=== PATIENT | male | born 1945 | race Caucasian/White ===

== ENCOUNTER 2020-05-22 00:08 | Outpatient (CLI) | payer MEDICARE, SELFPAY ==
[2020-05-22 19:45] LABS: SARS-CoV-2 RNA PCR Negative
== END 2020-05-22 00:09 | disposition home or self-care (01) ==
LOC: ANHCOVIDDT 00:08
PROVIDERS: PCP Internal Medicine; Visit Provider Internal Medicine Gastroenterology
DX: Z01.812 Encounter for preprocedural laboratory examination (principal); Z11.59 Encounter for screening for other viral diseases
CPT/HCPCS: 87635; C9803; U0003

== ENCOUNTER 2020-05-24 02:59 | Day surgery (SDC) | payer MEDICARE, SELFPAY ==
[2020-05-17 11:16] VITALS: BMI 25.1
[2020-05-24 08:17] VITALS: BP 140/79; PULSE 56; RESP 16; TEMP 36.2; O2SAT 98; BMI 24.7
--- NOTE | 2020-05-24 08:19 | P.PNAN_ITS ---
Anes - Initial Pre Proc Eval Procedure: Operation Date: 05/24/20 08:30 Proposed Procedures p Colonoscopy - Brendan Thompson MD Date/Time: 05/24/20 08:19 Surgeon: Brendan Thompson MD Pre Op Diagnosis: Abnormal Stool/ Hx Colon Polyps Patient Data Age: 74 Gender: M Height: 1.73 m Weight: 73.9 kg Last Vital Signs Temp 36.2 C L 05/24/20 08:17 Pulse 56 L 05/24/20 08:17 Resp 16 05/24/20 08:17 BP 140/79 05/24/20 08:17 Pulse Ox 98 05/24/20 08:17 Allergies Allergy/AdvReac Type Severity Reaction Status Date / Time No Known Allergies Allergy Verified 05/24/20 08:16 Home Medications Medication Instructions Recorded Confirmed Type losartan 100 mg tablet 100 mg PO DAILY 03/29/20 05/17/20 History lovastatin 20 mg tablet 20 mg PO DAILY 03/29/20 05/17/20 History metoprolol tartrate 25 mg tablet 25 mg PO BID 03/29/20 05/17/20 History pantoprazole 40 mg tablet,delayed 40 mg PO QAM 03/29/20 05/17/20 History release potassium chloride 20 mEq 20 meq PO DAILY 03/29/20 05/17/20 History tablet,extended release albuterol sulfate 1 inh INHALATION QID PRN 05/17/20 05/17/20 History amlodipine 5 mg PO DAILY 05/17/20 05/17/20 History Patient hx anesthesia problems: none Family hx anesthesia problems: none [facility] Past Medical History Medical History (Updated 05/24/20 @ 08:21 by Hayden Saleh MD) COPD (chronic obstructive pulmonary disease) Esophageal stricture High blood pressure High cholesterol Positive occult stool blood test Tobacco abuse Social History Social History (Updated 03/29/20 @ 09:22 by Adalgisa Palomo RN) Smoking status: Current every day smoker Tobacco type: cigarettes Alcohol intake: current Anes - Eval Final PreProcedure Day of Procedure 05/24/20 08:19 Patient weight: normal Heart: regular rate and rhythm Lungs: clear to auscultation and normal air movement Airway: Mallampati scale class II Neurological: alert and oriented Last oral intake: >/= 8 hours ASA classification: III Emergent: no Anesthetic plan: proceed Anesthesia type and monitoring: general GIVS Informed Consent: The patient's anesthetic plan and its attendant risks and benefits were discussed with the patient/family/POA. Questions were solicited and answers provided to the satisfaction of the patient/family/POA.
--- NOTE | 2020-05-24 08:29 | WPDGICN ---
Assessment and Plan Assessment and plan (1) Positive occult stool blood test: Code(s): R19.5 - Other fecal abnormalities Status: Acute Assessment and Plan: Occult blood in stool noted on screening exam for this reason colonoscopy will be performed at this time. High-fiber diet advised. Which may help with hemorrhoids. (2) History of colon polyps: Code(s): Z86.010 - Personal history of colonic polyps Status: Acute Assessment and Plan: Patient has a history of colon polyps identified 2014 by previous colonoscopy. This will be evaluated by repeat colonoscopy at this time. (3) Acid reflux: Code(s): K21.9 - Gastro-esophageal reflux disease without esophagitis Status: Acute Assessment and Plan: Patient known to have acid reflux. History of esophageal stricture . patient is advised to notify us if swallowing difficulties persist or recur. At that time follow-up might be requested continue anti-reflux m GI Consult Note Consult date/time: 05/24/20 08:29 HPI: Bryant Florian is a 74 year old male seen in evaluation at the request of Dr Adams Storm. Patient recently found to have Hemoccult-positive stools. He is referred for colonoscopy. Patient gives a history of having had a colonoscopy performed in [place] in 2014. At that time he was found to have colon polyps. Patient currently denies any abdominal pain he states his bowel habits are normal and regular. States he is known to have hemorrhoids that occasionally cause discomfort. However no discomfort recently. He denies any obvious blood in his stools. Family history is noncontributory. Review of Systems Review of Systems: All systems reviewed & are unremarkable except as noted in HPI and below PMFSH Past Medical History Medical History COPD (chronic obstructive pulmonary disease) Esophageal stricture High blood pressure High cholesterol Positive occult stool blood test Tobacco abuse Social History Social History (Updated 03/29/20 @ 09:22 by Adalgisa Palomo RN) Smoking status: Current every day smoker Tobacco type: cigarettes Alcohol intake: current Meds Home Medications and Allergies Home Medications Medication Instructions Recorded Confirmed Type losartan 100 mg tablet 100 mg PO DAILY 03/29/20 05/17/20 History lovastatin 20 mg tablet 20 mg PO DAILY 03/29/20 05/17/20 History metoprolol tartrate 25 mg tablet 25 mg PO BID 03/29/20 05/17/20 History pantoprazole 40 mg tablet,delayed 40 mg PO QAM 03/29/20 05/17/20 History release potassium chloride 20 mEq 20 meq PO DAILY 03/29/20 05/17/20 History tablet,extended release albuterol sulfate 1 inh INHALATION QID PRN 05/17/20 05/17/20 History amlodipine 5 mg PO DAILY 05/17/20 05/17/20 History Allergies Allergy/AdvReac Type Severity Reaction Status Date / Time No Known Allergies Allergy Verified 05/24/20 08:16 Vital Signs Vital Signs - 24 hr 05/24/20 08:17 Temperature 97.2 F L Pulse Rate 56 L Respiratory Rate 16 Blood Pressure 140/79 Pulse Oximetry 98 Exam Narrative: Exam Narrative: Physical exam reveals patient to be alert. Vital signs stable. HEENT exam unremarkable. Lungs are clear to auscultation and percussion. Heart is without murmur or extra sounds. Abdominal exam bowel sounds are present soft nontender with no hepatosplenomegaly. Digital external rectal exam is normal.
[2020-05-24] MEDS: LACTATED RINGERS 1,000 ML 150 ML IV CONT (08:33)
[2020-05-24 09:26] VITALS: BP 89/56; PULSE 64; RESP 16; O2SAT 98
[2020-05-24 09:36] VITALS: BP 116/75; PULSE 71; RESP 18; O2SAT 99
[2020-05-24 09:46] VITALS: BP 132/81; PULSE 60; RESP 19; O2SAT 99
== END 2020-05-24 09:49 | disposition home or self-care (01) ==
PROVIDERS: PCP Internal Medicine; Visit Provider Internal Medicine Gastroenterology
PROC: 0DJD8ZZ Inspection of Lower Intestinal Tract, Via Natural or Artificial Opening Endoscopic (ICD-10-PCS; CPT 45378; principal; 2020-05-24 08:30)
DX: R19.5 Other fecal abnormalities (principal); K64.8 Other hemorrhoids; K57.30 Diverticulosis of large intestine without perforation or abscess without bleeding; Z86.010 Personal history of colon polyps; K21.9 Gastro-esophageal reflux disease without esophagitis; I10 Essential (primary) hypertension; E78.00 Pure hypercholesterolemia, unspecified; J44.9 Chronic obstructive pulmonary disease, unspecified; F17.210 Nicotine dependence, cigarettes, uncomplicated
CPT/HCPCS: 45378; J2704; J7120

== ENCOUNTER 2020-12-10 03:18 | Outpatient (CLI) | payer MEDICARE, SELFPAY ==
[2020-12-10 16:31] LABS: SARS-CoV-2 RNA PCR Negative
== END 2020-12-10 03:19 | disposition home or self-care (01) ==
LOC: ANHCOVIDDT 03:18
PROVIDERS: PCP Internal Medicine; Visit Provider Internal Medicine Gastroenterology
DX: Z01.812 Encounter for preprocedural laboratory examination (principal); Z20.822 Contact with and (suspected) exposure to COVID-19
CPT/HCPCS: C9803; U0003; U0005

== ENCOUNTER 2020-12-13 01:40 | Day surgery (SDC) | payer MEDICARE, SELFPAY ==
[2020-12-06 12:13] VITALS: BMI 27.6
[2020-12-13 06:18] VITALS: BP 138/84; PULSE 73; RESP 20; TEMP 36.6; O2SAT 96
[2020-12-13] MEDS: LACTATED RINGERS 1,000 ML 150 ML IV CONT (06:27)
--- NOTE | 2020-12-13 07:11 | WPDANESEPPF ---
Anes - Initial Pre Proc Eval Procedure: Operation Date: 12/13/20 07:30 Proposed Procedures p Esophagogastroduodenoscopy - Brendan Thompson MD Date/Time: 12/13/20 07:11 Surgeon: Brendan Thompson MD Pre Op Diagnosis: Dysphagia Patient Data Age: 75 Gender: M Height: 5 ft 9 in Weight: 85 kg Last Vital Signs Temp 97.8 F 12/13/20 06:18 Pulse 73 12/13/20 06:18 Resp 20 12/13/20 06:18 BP 138/84 12/13/20 06:18 Pulse Ox 96 12/13/20 06:18 Allergies Allergy/AdvReac Type Severity Reaction Status Date / Time No Known Allergies Allergy Verified 12/13/20 06:16 Home Medications Medication Instructions Recorded Confirmed Type losartan 100 mg tablet 100 mg PO DAILY 03/29/20 12/06/20 History lovastatin 20 mg tablet 20 mg PO DAILY 03/29/20 12/06/20 History metoprolol tartrate 25 mg tablet 25 mg PO BID 03/29/20 12/06/20 History pantoprazole 40 mg tablet,delayed 40 mg PO BID 03/29/20 12/06/20 History release potassium chloride 20 mEq 20 meq PO DAILY 03/29/20 12/06/20 History tablet,extended release albuterol sulfate 1 inh INHALATION QID PRN 05/17/20 12/06/20 History amlodipine 5 mg PO DAILY 05/17/20 12/06/20 History aspirin 81 mg PO DAILY 12/06/20 12/06/20 History cholecalciferol (vitamin D3) 25 mcg PO DAILY 12/06/20 12/06/20 History cyanocobalamin (vitamin B-12) 1,000 mcg PO DAILY 12/06/20 12/06/20 History [Vitamin B-12] Patient hx anesthesia problems: none Family hx anesthesia problems: none PMFSH Past Medical History Medical History COPD (chronic obstructive pulmonary disease) Esophageal stricture High blood pressure High cholesterol Positive occult stool blood test Tobacco abuse Social History Social History (Updated 12/05/20 @ 14:07 by Rebekah Santillan MA) Smoking packs per day: 1.5 Smoking cigarettes per day: 30.0 Years smoked: 60 Smoking pack-years: 90.00 Smoking status: Former smoker Tobacco type: cigarettes Alcohol intake: current Drinks per week: 21 Alcohol use details: wine Living arrangements: with family Gender identity (if verbalized by the patient): Male Spiritual care concerns: No Anes - Eval Final PreProcedure Day of Procedure 12/13/20 07:11 Patient weight: overweight Heart: regular rate and rhythm Lungs: clear to auscultation Airway: Mallampati scale class II Neurological: alert and oriented Last oral intake: >/= 8 hours ASA classification: III Emergent: no Anesthetic plan: proceed Anesthesia type and monitoring: general GIVS and standard monitoring Informed Consent: The patient's anesthetic plan and its attendant risks and benefits were discussed with the patient/family/POA. Questions were solicited and answers provided to the satisfaction of the patient/family/POA.
[2020-12-13] MEDS: BENZOCAINE (*SP) 60 ML SPRAY CAN (HURRICAINE) 1 SPRAY MUCOUS MEM (07:40)
--- NOTE | 2020-12-13 07:40 | WPDHPUPDATE1 ---
History and Physical Update Update Date/Time: 12/13/20 07:40 History and Physical has been reviewed, including an updated exam of the patient. There are NO changes in the patient's condition. Risks, benefits, and alternatives have been discussed and questions answered. Patient agrees to proceed with procedure.
--- NOTE | 2020-12-13 07:48 | WPDGICN ---
Assessment and Plan Assessment and plan (1) Dysphagia: Code(s): R13.10 - Dysphagia, unspecified Status: Acute Assessment and Plan: Patient with recurrent dysphagia. He has a known history of esophageal stricture. Plan is for EGD today to assess more thoroughly. Because of his history of acid reflux pantoprazole 40 mg p.o. daily will be continued. Anti-reflux measures encouraged further recommendations will be given after endoscopy. (2) Esophageal stricture: Code(s): K22.2 - Esophageal obstruction Status: Acute (3) History of colon polyps: Code(s): Z86.010 - Personal history of colonic polyps Status: Acute Assessment and Plan: Anticipate follow-up colonoscopy at 5 year intervals. GI Consult Note Consult date/time: 12/13/20 07:48 HPI: Bryant Florian is a 75 year old male Seen in evaluation request Dr. Adams Storm. Patient has had increasing difficulty swallowing. Complains of significant phlegm production after eating. Currently denies any heartburn. He has had no weight loss. He does have past medical history of esophageal web dilated by endoscopy in the past. Was recently restarted on pantoprazole 40 mg p.o. daily. Review of Systems Review of Systems: All systems reviewed & are unremarkable except as noted in HPI and below PMFSH Past Medical History Medical History (Updated 12/13/20 @ 07:50 by Brendan Thompson MD) COPD (chronic obstructive pulmonary disease) Esophageal stricture High blood pressure High cholesterol Positive occult stool blood test Tobacco abuse Social History Social History (Updated 12/05/20 @ 14:07 by Rebekah Santillan MA) Smoking packs per day: 1.5 Smoking cigarettes per day: 30.0 Years smoked: 60 Smoking pack-years: 90.00 Smoking status: Former smoker Tobacco type: cigarettes Alcohol intake: current Drinks per week: 21 Alcohol use details: wine Living arrangements: with family Gender identity (if verbalized by the patient): Male Spiritual care concerns: No Meds Home Medications and Allergies Home Medications Medication Instructions Recorded Confirmed Type losartan 100 mg tablet 100 mg PO DAILY 03/29/20 12/06/20 History lovastatin 20 mg tablet 20 mg PO DAILY 03/29/20 12/06/20 History metoprolol tartrate 25 mg tablet 25 mg PO BID 03/29/20 12/06/20 History pantoprazole 40 mg tablet,delayed 40 mg PO BID 03/29/20 12/06/20 History release potassium chloride 20 mEq 20 meq PO DAILY 03/29/20 12/06/20 History tablet,extended release albuterol sulfate 1 inh INHALATION QID PRN 05/17/20 12/06/20 History amlodipine 5 mg PO DAILY 05/17/20 12/06/20 History aspirin 81 mg PO DAILY 12/06/20 12/06/20 History cholecalciferol (vitamin D3) 25 mcg PO DAILY 12/06/20 12/06/20 History cyanocobalamin (vitamin B-12) 1,000 mcg PO DAILY 12/06/20 12/06/20 History [Vitamin B-12] Allergies Allergy/AdvReac Type Severity Reaction Status Date / Time No Known Allergies Allergy Verified 12/13/20 06:16 Vital Signs Vital Signs - 24 hr 12/13/20 06:18 Temperature 97.8 F Pulse Rate 73 Respiratory Rate 20 Blood Pressure 138/84 Pulse Oximetry 96 Exam Narrative: Exam Narrative: Physical exam reveals patient to be alert. Vital signs stable. HEENT exam unremarkable. Patient is anicteric. Lungs are clear. Heart without murmur. Abdomen bowel sounds present soft nontender with no organomegaly. Digital external rectal exam deferred today.
[2020-12-13 07:53] VITALS: BP 127/82; PULSE 65; RESP 17; O2SAT 97
[2020-12-13 08:03] VITALS: BP 125/81; PULSE 70; RESP 19; O2SAT 95
[2020-12-13 08:10] VITALS: BP 144/88; PULSE 66; RESP 17; O2SAT 96
== END 2020-12-13 08:26 | disposition home or self-care (01) ==
PROVIDERS: PCP Internal Medicine; Visit Provider Internal Medicine Gastroenterology
PROC: 0DJ08ZZ Inspection of Upper Intestinal Tract, Via Natural or Artificial Opening Endoscopic (ICD-10-PCS; CPT 43235; principal; 2020-12-13 07:30)
DX: Q39.4 Esophageal web (principal); J44.9 Chronic obstructive pulmonary disease, unspecified; I10 Essential (primary) hypertension; E78.00 Pure hypercholesterolemia, unspecified; Z87.891 Personal history of nicotine dependence
CPT/HCPCS: 43450; J2704; J7120

== ENCOUNTER 2021-01-17 09:41 | Outpatient (CLI) | payer MEDICARE, SELFPAY ==
--- NOTE | ~2021-01-17 | XR_ITS ---
EXAMINATION: XR barium swallow modified DATE: 01/17/2021 09:57 INDICATION: Dysphagia. TECHNIQUE: The patient was given barium-containing material of multiple consistencies to swallow by edwin gallagher speech pathologist while I performed fluoroscopy. Dose-area product was 1.066 Gy-cm2. 2.2 minutes fluoroscopy time FINDINGS: Oral Stage: Normal Pharyngeal Phase: Normal Cervical/Esophageal Stage: Normal IMPRESSION: Modified esophagram findings as above. Please refer [facility] the [facility]. Reviewed, dictated and finalized at [facility]. Reviewed, dictated and finalized at [facility]. CHING OPERATOR IMPRESSION: Modified esophagram findings as above. Please refer to the speech t herapy report for specific recommendations.
--- NOTE | 2021-01-17 10:33 | STOPEVAL ---
MODIFIED BARIUM SWALLOW EVALUATION: Thank you for referring Bryant Florian to [facility].? Attending Provider: Brendan Thompson MD *ST Outpatient Evaluation/MBS Therapy Assessment Status Assessment Status Assessment Status Evaluation Outpatient Past Medical History Neurological History Hx Neurological Disorders No Significant History Cardiovascular History Hx Hypercholesterolemia Yes Hx Hypertension Yes Respiratory History Hx Chronic Obstructive Pulmonary Disease Yes: inhaler (COPD) Hx Other Respiratory Disorders Yes: collapsed lung age 21 yrs old Gastrointestinal History Hx Esophageal Disorders Yes: 2011 esophageal stricture with dilatation & again 2 weeks ago Hx Gastroesophageal Reflux Disease Yes Hx Polyps Yes: colon Genitourinary History Hx Genitourinary Disorders No Significant History Musculoskeletal History Hx Musculoskeletal Disorders No Significant History Hematological History Hx Hematological Disorders No Significant History Endocrine History Hx Endocrine Disorders No Significant History HEENT History Hx HEENT Disorders No Significant History Integumentary History Hx Skin Disorders No Significant History Reproductive History Hx Reproductive Disorders No Significant History Psychosocial History Hx Psychiatric Disorders No Significant History Pain History History of Any Previous or Ongoing No Significant History Instance of Pain Anesthesia History Hx Anesthesia Reactions No Significant History Prior Level of Function Prior Swallow Level Prior Intake Method Oral Prior Diet Regular (Level 7 Diet) Prior Liquid Consistency Thin (Level 0 Diet) Pain Assessment Timing of Pain Assessment Timing of Pain Assessment Assessment Self Report Self Report Pain Level 0 Pain Score Pain Score 0: Self Report Modified Barium Swallow Evaluation Recent Swallowing History Reports Dysphagia No: c/o coughing up phlegm in the am History of Dysphagia No Other Related History 2011 esophageal stricture with dilatation & again 2 weeks ago Other Factors Impacting Dysphagia None Reported Difficult Consistencies Saliva Intake Method Prior to Swallow Oral Evaluation Diet Prior to Swallow Evaluation Regular, Level 7 Liquid Consistency Prior to Swallow Thin (0) Evaluation Consistency Solid Consistency Other Amount cracker Method of Presentation Spoon Oral Preparatory Symptoms Within Functional Limits Oral Phase Symptoms Within Functional Limits Pharyngeal Phase Symptoms
== END 2021-01-17 09:42 | disposition home or self-care (01) ==
PROVIDERS: PCP Internal Medicine; Visit Provider Internal Medicine Gastroenterology
DX: R13.10 Dysphagia, unspecified (principal)
CPT/HCPCS: 92611

== ENCOUNTER 2021-02-25 07:55 | Outpatient (CLI) | payer MEDICARE, SELFPAY ==
--- NOTE | ~2021-02-25 | CT_ITS ---
EXAMINATION: CT lung screening DATE: 02/25/2021 08:31 INDICATION: Z87.891 - Personal history of nicotine dependence TECHNIQUE: Computed tomography (CT) of the chest was performed without intravenous contrast. Addition al 3D reconstructions utilizing coronal maximum intensity projection (MIP) were performed. Automated exposure control and iterative reconstruction technique were employed. The dose-length product was 14 2.05 mGy-cm. COMPARISON: None FINDINGS: Moderate paraseptal predominant emphysema throughout both lungs. There is a region of atelectasis/sca rring at the anteromedial right middle lobe with surrounding local architectural distortion indicatin g associated volume loss. Additional mild discoid atelectasis/scarring at the left apex. There are co uple calcified nodules in the bilateral lower lobes along with calcified left hilar lymph nodes and s everal punctate calcification at the dome of liver consistent with old granulomatous disease. Small b ilateral fat-containing Bochdalek hernias. Heart size is normal. Atherosclerotic coronary artery calc ifications. Mild aortic valve calcification. No pericardial or pleural effusion. Small sliding-type h iatal hernia. Thoracic aorta is normal in caliber with small amount of atherosclerotic calcification. Bilateral renal cysts, the largest measuring 3.5 cm in the right kidney. Moderate to severe thoracol umbar spondylosis with Schmorl's nodes along the superior endplates of T12 and L1. IMPRESSION: 1. Lung-RADS category 1: Negative. Continue annual screening with noncontrast low-dose chest CT in 12 months. 2. Moderate paraseptal emphysema. 3. Small sliding-type hiatal hernia. Reviewed, dictated and finalized at [facility]. IMPRESSION: 1. Lung-RADS category 1: Negative. Continue annual screening with noncontrast l ow-dose chest CT in 12 months. 2. Moderate paraseptal emphysema. 3. Small sliding-type hiatal hernia.
== END 2021-02-25 07:56 | disposition home or self-care (01) ==
LOC: ANHIMG 08:01
PROVIDERS: PCP Internal Medicine; Visit Provider Internal Medicine Pulmonary Disease
DX: Z12.2 Encounter for screening for malignant neoplasm of respiratory organs (principal); Z87.891 Personal history of nicotine dependence; J43.9 Emphysema, unspecified; K44.9 Diaphragmatic hernia without obstruction or gangrene
CPT/HCPCS: 71271

== ENCOUNTER 2021-02-28 08:43 | Outpatient (CLI) | payer MEDICARE, SELFPAY ==
[2021-02-28 09:30] VITALS: PULSE 98; O2SAT 95
[2021-02-28 09:35] VITALS: PULSE 106; O2SAT 93
[2021-02-28 09:45] VITALS: PULSE 92; O2SAT 95
--- NOTE | 2021-02-28 11:46 | HOMEO2EVAL ---
Home Oxygen Evaluation RC: Home Oxygen (O2) Evaluation Start: 02/28/21 11:44 Freq: Status: Active Protocol: RPE Activity Type Activity Date Activity User E-Sign Co-Sign Detail Recorded Client Recorded Date Recorded By Document 02/28/21 09:30 DJO [email or web address] 02/28/21 11:46 DJO Document 02/28/21 09:35 [email or web address] [email or web address] 02/28/21 11:46 DJO Document 02/28/21 09:45 [email or web address] [email or web address] 02/28/21 11:46 DJO 02/28/21 02/28/21 02/28/21 09:30 09:35 09:45 Home O2 Evaluation Test Phase Resting Exercise Resting Oxygen Delivery Room Air Room Air Room Air Pulse Oximetry (90-100 %) 95 93 95 Pulse Rate (60-100 beats/min) 98 106 H 92 Ambulation Distance (feet) 1,200 Home Oxygen Evaluation Comments NO HOME O2 NEEDED Treatment Charges O2 Evaluation - Outpatient
--- NOTE | 2021-02-28 17:17 | P.PCNPFT_ITS ---
PFT Interpretation This is a pulmonary function test with pre and post-bronchodilator spirometry, plethysmography and diffusing capacity. The test was performed and results interpreted in accordance with the 2019 and 2005 ATS/ERS Task Force guidelines respectively using the Global Lung Function Initiative-2012 reference equations. Patient demonstrated good effort and c ooperation. Reproducibility criteria were met. The quality of the pre bronchodilator spirometry maneuver was Grade A and post bronchodilator spirometry maneuver was Grade A. Findings: Spirometry: There is decreased maximal expiratory airflow at all lung volumes with concave expiratory flow tracing. The contour of the inspiratory flow tracing is normal. The pre bronchodilator FVC is 3.65 L, 93% predicted. The pre bronchodilator FEV1 is 1.89 L, 64% predicted. The FEV1: FVC ratio is 52%. The post bronchodilator FVC is 4.06 L, representing 11% increase. The post bronchodilator FEV1 is 2.17 L, representing a 14% increase. Plethysmography: The total lung capacity is 8.17 L, 120% predicted. The functional residual capacity is 4.23 L, 116% predicted. The residual volume is 4.10 L, 166% predicted. Diffusing capacity: The absolute diffusion capacity was 13.4, 54% predicted. The diffusing capacity corrected for alveolar volume is 2.21, 57% predicted. Impression: There is a modeerate obstructive abnormality with significant improvement after inhaling a single dose of albuterol. The increase in residual volume is consistent with air trapping from an obstructive abnormality. The absolute diffusing capacity is moderately decreased and remains moderately decreased when corrected for alveolar volume. There are no prior studies for comparison PFT Procedure Performed PFT Procedure Performed Spirometry with Pre/Post Bronchodilator Plethysmography (Lung Vol) Diffusing Cap (DLCO)
== END 2021-02-28 08:44 | disposition home or self-care (01) ==
PROVIDERS: PCP Internal Medicine; Referring Provider Nurse Practitioner Family; Visit Provider Internal Medicine Pulmonary Disease
DX: J44.9 Chronic obstructive pulmonary disease, unspecified (principal); R06.00 Dyspnea, unspecified
CPT/HCPCS: 94060; 94618; 94726; 94729

== ENCOUNTER 2021-11-14 02:26 | Day surgery (SDC) | payer MEDICARE, SELFPAY ==
[2021-11-07 10:39] VITALS: BMI 25.8
[2021-11-14 11:23] VITALS: BP 138/87; PULSE 74; RESP 16; TEMP 36.4; O2SAT 98
[2021-11-14] MEDS: LACTATED RINGERS 1,000 ML 150 ML IV CONT (11:26)
--- NOTE | 2021-11-14 12:04 | WPDANESEPPF ---
Anes - Initial Pre Proc Eval Procedure: Operation Date: 11/14/21 13:30 Proposed Procedures p Esophagogastroduodenoscopy - Brendan Thompson MD Date/Time: 11/14/21 12:04 Surgeon: Brendan Thompson MD Pre Op Diagnosis: dysphagia Patient Data Age: 76 Gender: M Height: 1.73 m Weight: 72.5 kg Last Vital Signs Temp 36.4 C 11/14/21 11:23 Pulse 74 11/14/21 11:23 Resp 16 11/14/21 11:23 BP 138/87 11/14/21 11:23 Pulse Ox 98 11/14/21 11:23 Allergies Allergy/AdvReac Type Severity Reaction Status Date / Time No Known Allergies Allergy Verified 11/14/21 11:22 Home Medications Medication Instructions Recorded Confirmed Type losartan 100 mg tablet 100 mg PO DAILY 03/29/20 11/07/21 History pantoprazole 40 mg tablet,delayed 40 mg PO DAILY 03/29/20 11/07/21 History release potassium chloride 20 mEq 20 meq PO DAILY 03/29/20 11/07/21 History tablet,extended release albuterol sulfate 1 inh INHALATION QID PRN 05/17/20 11/07/21 History amlodipine 5 mg PO DAILY 05/17/20 11/07/21 History cholecalciferol (vitamin D3) 25 mcg PO DAILY 12/06/20 11/07/21 History cyanocobalamin (vitamin B-12) 1,000 mcg PO DAILY 12/06/20 11/07/21 History [Vitamin B-12] tiotropium bromide 2.5 2 inh INHALATION DAILY #4 g 09/25/21 11/07/21 Rx mcg/actuation mist for inhalation lovastatin 20 mg PO DAILY 11/07/21 11/07/21 History metoprolol succinate 25 mg PO BID 11/07/21 11/07/21 History Patient hx anesthesia problems: none Family hx anesthesia problems: none Results Review: All pre-operative results and documents have been reviewed as part of the pre-operative evaluation. [facility] [place] Past Medical History Medical History COPD (chronic obstructive pulmonary disease) Esophageal stricture High blood pressure High cholesterol Positive occult stool blood test Tobacco abuse Social History Social History Smoking packs per day: 1.5 Smoking cigarettes per day: 30.0 Years smoked: 62 Smoking pack-years: 93.00 Smoking status: Former smoker Tobacco type: cigarettes Smoking end date: 04/11/20 Alcohol intake: current Drinks per week: 14 Alcohol use details: WINE IN JES. Substance use: never Substance use type: does not use Living arrangements: with family Gender identity (if verbalized by the patient): Male Spiritual care concerns: No Anes - Eval Final PreProcedure Day of Procedure 11/14/21 12:04 Patient weight: normal Heart: regular rate and rhythm Lungs: clear to auscultation Airway: Mallampati scale class II Neurological: alert and oriented Last oral intake: >/= 8 hours ASA classification: III Emergent: no Anesthetic plan: proceed Anesthesia type and monitoring: general GIVS and standard monitoring Results Review: All pre-operative results and documents have been reviewed as part of the pre-operative evaluation. Informed Consent: The patient's anesthetic plan and its attendant risks and benefits were discussed with the patient/family/POA. Questions were solicited and answers provided to the satisfaction of the patient/family/POA.
--- NOTE | 2021-11-14 12:07 | WPDGICN ---
Assessment and Plan Assessment and plan (1) Dysphagia: Code(s): R13.10 - Dysphagia, unspecified Status: Acute Assessment and Plan: Patient with recurrent dysphagia. Known to have esophageal stricture. Plan is for follow-up EGD at this time. He continues to have heartburn despite taking pantoprazole 40mg p.o. daily. May need an alteration or adjustment of this dose. Further recommendations will be given after EGD. (2) Esophageal stricture: Code(s): K22.2 - Esophageal obstruction Status: Acute (3) Acid reflux: Code(s): K21.9 - Gastro-esophageal reflux disease without esophagitis Status: Acute (4) COPD (chronic obstructive pulmonary disease): Code(s): J44.9 - Chronic obstructive pulmonary disease, unspecified Status: Acute GI Consult Note Consult date/time: 11/14/21 12:07 HPI: Bryant Florian is a 76 year old male Complains of recurrent difficulty swallowing. Patient stop smoking cigarettes. He states that since that time has had significant phlegm production. He notices regurgitation per dominantly nocturnally. He will have substernal burning. He has difficulty with spicy foods. In November of 2020 had esophageal stricture requiring dilatation since that time he has been maintained on pantoprazole 40mg p.o. once daily. He did well initially however over the last several months has had increasing difficulty swallowing both solids and liquids. He feels substernal burning on swallowing spicy foods. He has heartburn at night with regurgitation. He also feels that foods will hang up in the low mid chest. Review of Systems Review of Systems: All systems reviewed & are unremarkable except as noted in HPI and below [facility] Past Medical History Medical History COPD (chronic obstructive pulmonary disease) Esophageal stricture High blood pressure High cholesterol Positive occult stool blood test Tobacco abuse Social History Social History Smoking packs per day: 1.5 Smoking cigarettes per day: 30.0 Years smoked: 62 Smoking pack-years: 93.00 Smoking status: Former smoker Tobacco type: cigarettes Smoking end date: 04/11/20 Alcohol intake: current Drinks per week: 14 Alcohol use details: WINE IN JES. Substance use: never Substance use type: does not use Living arrangements: with family Gender identity (if verbalized by the patient): Male Spiritual care concerns: No Meds Home Medications and Allergies Home Medications Medication Instructions Recorded Confirmed Type losartan 100 mg tablet 100 mg PO DAILY 03/29/20 11/07/21 History pantoprazole 40 mg tablet,delayed 40 mg PO DAILY 03/29/20 11/07/21 History release potassium chloride 20 mEq 20 meq PO DAILY 03/29/20 11/07/21 History tablet,extended release albuterol sulfate 1 inh INHALATION QID PRN 05/17/20 11/07/21 History amlodipine 5 mg PO DAILY 05/17/20 11/07/21 History cholecalciferol (vitamin D3) 25 mcg PO DAILY 12/06/20 11/07/21 History cyanocobalamin (vitamin B-12) 1,000 mcg PO DAILY 12/06/20 11/07/21 History [Vitamin B-12] tiotropium bromide 2.5 2 inh INHALATION DAILY #4 g 09/25/21 11/07/21 Rx mcg/actuation mist for inhalation lovastatin 20 mg PO DAILY 11/07/21 11/07/21 History metoprolol succinate 25 mg PO BID 11/07/21 11/07/21 History Allergies Allergy/AdvReac Type Severity Reaction Status Date / Time No Known Allergies Allergy Verified 11/14/21 11:22 Vital Signs Vital Signs - 24 hr 11/14/21 11:23 Temperature 97.6 F Pulse Rate 74 Respiratory Rate 16 Blood Pressure 138/87 Pulse Oximetry 98 Exam Narrative: Physical exam reveals patient to be alert. Vital signs stable. HEENT exam is unremarkable. Patient is anicteric. Lungs are clear to auscultation and percussion. Heart is without murmur or extra sounds. Abdominal exam
[2021-11-14 12:50] VITALS: BP 84/54; PULSE 72; RESP 18; O2SAT 100
[2021-11-14 13:00] VITALS: BP 103/64; PULSE 77; RESP 23; O2SAT 100
[2021-11-14 13:10] VITALS: BP 115/68; PULSE 74; RESP 22; O2SAT 94
== END 2021-11-14 13:30 | disposition home or self-care (01) ==
PROVIDERS: PCP Internal Medicine; Visit Provider Internal Medicine Gastroenterology
PROC: 0DJ08ZZ Inspection of Upper Intestinal Tract, Via Natural or Artificial Opening Endoscopic (ICD-10-PCS; CPT 43235; principal; 2021-11-14 13:30)
DX: R13.10 Dysphagia, unspecified (principal); K22.2 Esophageal obstruction; K21.00 Gastro-esophageal reflux disease with esophagitis, without bleeding; J44.9 Chronic obstructive pulmonary disease, unspecified; I10 Essential (primary) hypertension; E78.00 Pure hypercholesterolemia, unspecified; Z87.891 Personal history of nicotine dependence
CPT/HCPCS: 43249; 43239; 88305; C1726; J2704; J7120

== ENCOUNTER 2021-11-24 09:47 | Outpatient (CLI) | payer MEDICARE, SELFPAY ==
--- NOTE | ~2021-11-24 | CT_ITS ---
EXAMINATION:CT diagnostic chest w con DATE: 11/24/2021 11:24 INDICATION: Dysphagia, unspecified. Mid esophageal stricture. TECHNIQUE: Computed tomography (CT) of the chest was performed with 75 mL Omnipaque 350 intravenous c ontrast. Automated exposure control and iterative reconstruction technique were employed. The dose-le ngth product (DLP) was 200.25 mGy-cm. COMPARISON: Chest CT 02/25/2021 FINDINGS: There is severe emphysema. Calcified left lung nodules and calcified left hilar lymph nodes are consistent with old granulomatous disease. There is mild atelectasis in the inferior lungs. Ther e are bilateral posterior diaphragmatic hernias containing fat. The heart size is normal. There are c oronary artery calcifications. No pericardial effusion. There is a small sliding hiatal hernia. There is a 3.8 x 2.8 cm mass involving the esophagus and farhan. Calcifications in the liver consistent wi th old granulomatous disease. There are cysts in the kidneys measuring up to 3.6 cm on the right. The re is severe cervical spondylosis and moderate thoracic spondylosis. There are old healed right rib f ractures. IMPRESSION: 1. Mass involving the esophagus and farhan, consistent with primary malignancy. Bronchoscopy is recom mended given the discordant pathology result from endoscopy. 2. Severe emphysema. Reviewed, dictated and finalized at location A. CASHIER IMPRESSION: 1. Mass involving the esophagus and farhan, consistent with primary malignancy. Bronchoscopy is recommended given the discordant pathology result from endosco py. 2. Severe emphysema.
[2021-11-24 11:15] LABS: Estimated Glomerular Filt Rate > 60
== END 2021-11-24 09:48 | disposition home or self-care (01) ==
PROVIDERS: PCP Internal Medicine; Visit Provider Internal Medicine Gastroenterology
DX: R13.10 Dysphagia, unspecified (principal); K22.9 Disease of esophagus, unspecified; J43.9 Emphysema, unspecified
CPT/HCPCS: 71260; Q9967

== ENCOUNTER 2021-11-26 11:03 | Outpatient (CLI) | payer MEDICARE, SELFPAY ==
--- NOTE | 2021-11-26 11:20 | ECG_ITS ---
Measurements Intervals [place] Rate: 69 P: 84 ME: 154 QRS: 34 QRSD: 77 T: 47 QT: 380 QTc: 410 Interpretive Statements SINUS RHYTHM LOW QRS VOLTAGE IN LIMB LEADS MINIMAL Q WAVES- INFERIOR LEADS BORDERLINE ST ABNORMALITY- ANTERIOR LEADS BASELINE WANDER- I, II, AVR, AVL, AVF BORDERLINE ECG Electronically Signed On 11-26-2021 12:00:10 SIZE CUTTER by Hoang Hutchison D.O.
[2021-11-26 11:33] LABS: Basophils Absolute Auto 0.1 K/mm3 (0.0-0.1); Basophils Percent Auto 0.8 % (0.2-1.2); Eosinophils Absolute Auto 0.2 K/mm3 (0-0.3); Eosinophils Percent Auto 3.4 % (0-4.4); Hematocrit 41.9 % (42.0-52.0); Hemoglobin 13.9 g/dL (14.0-18.0); Immature Granulocyte Absolute 0.02 K/mm3 (0.00-0.031); Immature Granulocyte Percent A 0.3 % (0-0.5); Lymphocytes Absolute Auto 1.24 K/mm3 (0.9-3.2); Lymphocytes Percent Auto 20.2 % (18.3-44.2); Mean Corpuscular HGB Conc 33.2 g/dl (32-36); Mean Corpuscular Hemoglobin 31.5 pg (26-34); Mean Platelet Volume 9.9 fl (7.4-10.4); Monocytes Absolute Auto 0.5 K/mm3 (0.1-0.6); Monocytes Percent Auto 8.6 % (2.6-8.5); Neutrophils Absolute Auto 4.1 K/mm3 (1.3-6.7); Neutrophils Percent Auto 66.7 % (45.5-73.1); Platelet Count Result 307 k/mm3 (150-375); Red Blood Count 4.41 M/mm3 (4.6-6.20); White Blood Count 6.2 K/mm3 (4.5-10.0)
[2021-11-26 11:44] LABS: Alanine Aminotransferase 16 U/L (4-50); Albumin Level 4.1 g/dL (3.5-5.1); Alkaline Phosphatase 56 U/L (38-126); Anion Gap 9 mmol/L (8-16); Aspartate Amino Transferase 25 U/L (17-59); Bilirubin,Total 0.7 mg/dL (0.2-1.3); Blood Urea Nitrogen 12 mg/dL (9-20); Calcium 9.2 mg/dL (8.4-10.2); Carbon Dioxide 26 mmol/L (22-30); Chloride 105 mmol/L (98-107); Estimated Glomerular Filt Rate > 60; Glucose 102 mg/dL (65-110); Potassium 4.2 mmol/L (3.4-5.0); Sodium 140 mmol/L (137-145)
[2021-11-26 12:04] LABS: INR 0.9; Prothrombin Time 12.5 Seconds (11.1-14.7)
[2021-11-26 12:05] LABS: Partial Thromboplastin Time 27.3 SECONDS (22.3-36.8)
== END 2021-11-26 11:04 | disposition home or self-care (01) ==
PROVIDERS: PCP Internal Medicine; Visit Provider Internal Medicine Pulmonary Disease
DX: R04.2 Hemoptysis (principal); R91.8 Other nonspecific abnormal finding of lung field; J44.9 Chronic obstructive pulmonary disease, unspecified; R19.5 Other fecal abnormalities; E78.00 Pure hypercholesterolemia, unspecified; I10 Essential (primary) hypertension
CPT/HCPCS: 36415; 80053; 85025; 85610; 85730; 93005

== ENCOUNTER 2021-11-28 01:10 | Day surgery (SDC) | payer MEDICARE, SELFPAY ==
[2021-11-26 10:08] VITALS: BMI 25.8
[2021-11-28] VITALS (8 sets, daily range): BP systolic 112–161; BP diastolic 77–96; PULSE 64–86; RESP 16–24; TEMP 36.2–36.6; O2SAT 93–100
--- NOTE | ~2021-11-28 | XR_ITS ---
EXAMINATION: XR chest 1V portable DATE: 11/28/2021 14:22 INDICATION: Mediastinal mass status post bronchoscopy. TECHNIQUE: A single frontal view of the chest was obtained. COMPARISON: Chest CT 11/24/2021 FINDINGS: There are lucencies in the lungs, consistent with emphysema. A calcified left lung nodule i s consistent with old granulomatous disease. No pleural effusion or pneumothorax. The heart size is n ormal. IMPRESSION: 1. Emphysema. Reviewed, dictated and finalized at location A. H MANAGER IMPRESSION: 1. Emphysema.
[2021-11-28] MEDS: LACTATED RINGERS 1,000 ML 150 ML IV CONT (12:12)
--- NOTE | 2021-11-28 12:52 | WPDANESEPPF ---
Anes - Initial Pre Proc Eval Procedure: Operation Date: 11/28/21 13:15 Proposed Procedures p Flexible Bronchoscopy w Fluoro - Channing Cardona MD Date/Time: 11/28/21 12:52 Surgeon: Channing Cardona MD Pre Op Diagnosis: lung mass Patient Data Age: 76 Gender: M Height: 1.73 m Weight: 72.2 kg Last Vital Signs Temp 97.8 F 11/28/21 11:53 Pulse 76 11/28/21 11:53 Resp 18 11/28/21 11:53 BP 138/82 11/28/21 11:53 Pulse Ox 100 11/28/21 11:53 Allergies Allergy/AdvReac Type Severity Reaction Status Date / Time No Known Allergies Allergy Verified 11/28/21 11:51 Home Medications Medication Instructions Recorded Confirmed Type losartan 100 mg tablet 100 mg PO DAILY 03/29/20 11/28/21 History pantoprazole 40 mg tablet,delayed 40 mg PO DAILY 03/29/20 11/28/21 History release potassium chloride 20 mEq 20 meq PO DAILY 03/29/20 11/28/21 History tablet,extended release albuterol sulfate 1 inh INHALATION QID PRN 05/17/20 11/28/21 History amlodipine 5 mg PO DAILY 05/17/20 11/28/21 History cholecalciferol (vitamin D3) 25 mcg PO DAILY 12/06/20 11/28/21 History cyanocobalamin (vitamin B-12) 1,000 mcg PO DAILY 12/06/20 11/28/21 History [Vitamin B-12] tiotropium bromide 2.5 2 inh INHALATION DAILY #4 g 09/25/21 11/28/21 Rx mcg/actuation mist for inhalation lovastatin 20 mg PO DAILY 11/07/21 11/28/21 History metoprolol succinate 25 mg PO BID 11/07/21 11/26/21 History Patient hx anesthesia problems: none Family hx anesthesia problems: none Results Review: All pre-operative results and documents have been reviewed as part of the pre-operative evaluation. [facility] Past Medical History Medical History (Updated 11/25/21 @ 12:27 by Brendan Thompson MD) COPD (chronic obstructive pulmonary disease) Esophageal stricture High blood pressure High cholesterol Positive occult stool blood test Tobacco abuse Social History Social History Smoking packs per day: 1.5 Smoking cigarettes per day: 30.0 Years smoked: 62 Smoking pack-years: 93.00 Smoking status: Former smoker Tobacco type: cigarettes Smoking end date: 04/11/20 Alcohol intake: current Drinks per week: 14 Alcohol use details: WINE IN JES. Substance use: never Substance use type: does not use Living arrangements: with family Gender identity (if verbalized by the patient): Male Spiritual care concerns: No Anes - Eval Final PreProcedure Day of Procedure 11/28/21 12:52 Patient weight: normal Heart: regular rate and rhythm Lungs: clear to auscultation Airway: Mallampati scale class II Neurological: alert and oriented Last oral intake: >/= 8 hours ASA classification: III Emergent: no Anesthetic plan: proceed Anesthesia type and monitoring: general LMA and ETT and standard monitoring Results Review: All pre-operative results and documents have been reviewed as part of the pre-operative evaluation. Informed Consent: The patient's anesthetic plan and its attendant risks and benefits were discussed with the patient/family/POA. Questions were solicited and answers provided to the satisfaction of the patient/family/POA.
--- NOTE | 2021-11-28 13:08 | PM.IMHP ---
H&P: HPI History of Present Illness Date/Time: 11/28/21 13:08 Chief Complaint: Presents for outpatient bronchoscopy 11/28/20 Patient found to have a 3.8 x 2.8 cm subcarinal mass and presents today for outpatient bronchoscopy. Today the patient tells me has no fever, chills, rigors or change in his chronic cough or phlegm production. He has been NPO since 8:00 p.m. last night and states that he still has to take small sips of liquids or chew was up to his food up very finely to swallow. Below are the details from my previous office visit. Addendum: Dr. Thompson, the corporate development officer, performed an EGD on the patient on 11/14/2021 for difficulty swallowing. He saw extrinsic compression of the esophagus and performed biopsies which were negative. he then ordered a CT scan of the chest which was performed on 11/24/2021 at 6:21 p.m.. He brought the results to me today which demonstrate a 3.8 x 2.8 cm mass involving the esophagus and farhan. I resumed reviewed this CT scan with Radiology who concurred. There were no parenchymal lung lesions. I called the patient who has COPD and says he has been breathing at his baseline over the last few weeks. We talked about the need for a biopsy and I described the benefits and risks of bronchoscopy with Nur needle biopsy. The patient was willing to proceed with the procedure. He is not on any blood thinners. He has had no prior bleeding abnormalities. Patient has received his maternal a COVID vaccine x2 and his booster on 09/19/2021. He is tentatively scheduled for 11/28/21 at 1:00 p.m.. Addendum Documented By: Channing Cardona MD11/25/21 1410Addendum Signed By:<Electronically signed by Channing Cardona MD>11/25/21 1410 ADDENDUMAddendum Text Addendum Addendum: Re[facility] a list of [facility]. I have ordered Spiriva Respimat 2.5 mcg inhaled twice a day. He should start taking this medicine and stop taking the Symbicort. Addendum Documented By: Channing Cardona MD09/02/21 1307Addendum Signed By:<Electronically signed by Channing Cardona MD>09/02/21 1307 HPI HPI Comments Details: 07/18/2021. This is a follow up encounter for GOLD grade 2 group A COPD from 04/18/2021. On 04/18/2021 patient had a CAT score of 5 and no real respiratory limitations in his activities of daily living on albuterol 1 puff in the morning and 1 puff at night. He could not get a long-acting muscarinic and long-acting beta agonist through the [facility] and could only get Symbicort which I told him to take 160-4.5 at 1 puff twice a day and to increase to 2 puffs twice a day for continued symptoms. Patient was to have a repeat overnight oximetry on 2 L which has not been completed. Today the patient tells me that He took the Symbicort 160-4.5 at 1 puff twice a day for about 1 month and stated that he still was having cough and phlegm production. He then crit increased his Symbicort to 2 puffs b.i.d. and that has decreased his cough and decreased his phlegm production. His dyspnea on exertion remains the same with an M MRC grade 3 and he states that he can walk about 1 block before he stops for dyspnea on exertion. 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 The patient is wearing 2 L at night and states he has no issues with this. Since the last admitted visit he has had no exacerbations. The patient quit smoking in March of 2020. He is COVID vaccinated and has plans to receive his influenza vaccine in the fall of 2020. The patient tells me that the DC has told him there is only 1 inhaler that he is eligible for and that is Symbicort. I told him that there are more inhalers that he should be eligible for and he will ask the DC on 08/02/2021 with his next appointment if they have a list of inhalers that he is eligible for. I would like to initiate a muscarinic antagonist to see if this helps his dyspnea on exe
[2021-11-28] MEDS: LIDOCAINE HCL 2% PF INJ 5 ML VIAL 4 ML XX (14:00)
--- NOTE | 2021-11-28 14:18 | SUR.PHASEII ---
Addendum entered by Chloe Watters RN 11/28/21 14:18: Note below should be timed 1410 Original Note: Breath sounds clear and equal bilaterally.
--- NOTE | 2021-11-28 14:30 | SUR.PHASEII ---
Breath sounds clear and equal bilaterally.
--- NOTE | 2021-11-28 14:50 | SUR.PHASEII ---
Breath sounds clear and equal bilaterally.
--- NOTE | 2021-11-28 15:16 | SUR.PHASEII ---
CXR results called to Dr. Cardona. He states he will come down to speak with patient and his .
== END 2021-11-28 15:30 | disposition home or self-care (01) ==
PROVIDERS: PCP Internal Medicine; Visit Provider Internal Medicine Pulmonary Disease
PROC: BB1DZZZ Fluoroscopy of Upper Airways (ICD-10-PCS; CPT 31624; principal; 2021-11-28 13:00)
DX: R91.8 Other nonspecific abnormal finding of lung field (principal); I10 Essential (primary) hypertension; E78.00 Pure hypercholesterolemia, unspecified; J44.9 Chronic obstructive pulmonary disease, unspecified; Z79.51 Long term (current) use of inhaled steroids; Z87.891 Personal history of nicotine dependence
CPT/HCPCS: 31625; 31623; 71045; 88160; J1100; J2001; J2405; J2704; J7040; J7120

== ENCOUNTER 2021-12-19 13:09 | Outpatient (CLI) | payer MEDICARE, SELFPAY ==
--- NOTE | ~2021-12-19 | CT_ITS ---
EXAMINATION: CT brain w con DATE: 12/19/2021 13:45 INDICATION: Neoplasm of lung. TECHNIQUE: Computed tomography (CT) of the head was performed with 100 mL Omnipaque 350 intravenous c ontrast. The mA was adjusted according to patient size. Iterative reconstruction technique was employ ed. The dose-length product was 605.33 mGy-cm. COMPARISON: None FINDINGS: There are scattered areas of low attenuation in the cerebral white matter. There is no intr acranial hemorrhage, acute infarction, or abnormal intracranial mass lesion. The ventricles are hermann l in size. There is an old blowout fracture of medial wall of left orbit. There is mucosal thickening in the paranasal sinuses. The mastoid air cells are normal. IMPRESSION: 1. No evidence of metastatic disease. 2. Mild nonspecific cerebral white matter disease, which likely represents chronic small vessel ische lorene disease. Reviewed, dictated and finalized at location A. ADVISOR IMPRESSION: 1. No evidence of metastatic disease. 2. Mild nonspecific cerebral white matter disease, which likely represents drop forge hand jake small vessel ischemic disease.
--- NOTE | ~2021-12-19 | PE_ITS ---
EXAMINATION: PET skull to mid thigh DATE: 12/19/2021 15:20 INDICATION: Malignant neoplasm of lung. TECHNIQUE: Blood glucose level was 91 mg/dL. 11.257 mCi of 18-fluorodeoxyglucose (18-FDG) was adminis tered i.v. Low dose computed tomography (CT) images were acquired from the base of the brain to the p roximal thighs for attenuation correction and anatomic localization. Automated exposure control was e mployed. Dose-length product (DLP) was 416 mGy-cm. Positron emission tomography (PET) images were acq uired in the same distribution. COMPARISON: Chest CT 11/24/2021 FINDINGS: Head/neck: There is mucosal thickening in the paranasal sinuses. There is a radiopaque foreign body i n the tip of the nose. There is increased activity in the oral cavity, oropharynx without CT correlat e, likely physiologic. There is a radiopaque foreign body in left lower cheek. Chest: There is moderate emphysema. A calcified left lung nodule and calcified left hilar lymph nodes are consistent with old granulomatous disease. No pleural effusion. There is a 3.5 x 3.0 cm mass inv olving the esophagus and subcarinal region with maximum SUV of 9.0. The heart size is normal. There a re coronary artery calcifications. No pericardial effusion. Abdomen/pelvis/proximal thighs: There is a 7 mm cyst in the liver. Calcifications in the liver consis tent with old granulomatous disease. The gallbladder, spleen, pancreas, and right adrenal gland are n ormal. There are dystrophic calcifications of left adrenal gland. There are cysts in the kidneys sunday uring up to 3.4 cm on the right. There is a 13 mm peripherally calcified mass in right kidney, likely benign. The prostate is moderately enlarged. There is diverticulosis of the colon. There is wall thi ckening of sigmoid colon with increased activity, likely chronic diverticulitis. There are no dilated loops of bowel. The appendix is normal. There is severe lumbar spondylosis. There is mild chronic an terior wedging of multiple vertebral bodies. IMPRESSION: 1. 3.5 x 3.0 cm mass involving the esophagus and subcarinal region with maximum SUV of 9.0, consisten t with squamous cell carcinoma. 2. Wall thickening of sigmoid colon with increased activity, likely chronic diverticulitis. Reviewed, dictated and finalized at location A. TIONAL SKILLS TUTOR IMPRESSION: 1. 3.5 x 3.0 cm mass involving the esophagus and subcarinal region with maximum SUV of 9.0, consistent with squamous cell carcinoma. 2. Wall thickening of sigmoid colon with increased activity, likely chronic div erticulitis.
[2021-12-19 13:53] LABS: Glucose Point of Care 91 mg/dl (65-105)
== END 2021-12-19 13:10 | disposition home or self-care (01) ==
LOC: ANHIMG 13:14
PROVIDERS: PCP Internal Medicine; Visit Provider Internal Medicine Hematology & Oncology
DX: Z03.89 Encounter for observation for other suspected diseases and conditions ruled out (principal); C34.90 Malignant neoplasm of unspecified part of unspecified bronchus or lung; R91.8 Other nonspecific abnormal finding of lung field; R90.82 White matter disease, unspecified
CPT/HCPCS: 70460; 78815; A9552; Q9967

== ENCOUNTER 2022-05-22 08:45 | Outpatient (CLI) | payer MEDICARE, SELFPAY ==
--- NOTE | ~2022-05-22 | CT_ITS ---
EXAMINATION: CT diagnostic chest w con DATE: 05/22/2022 09:30 INDICATION: Malignant neoplasm of the lung TECHNIQUE: Transaxial computed tomographic images of the chest were obtained after the administration of 75 cc of Omnipaque 300 intravenous contrast. The dose-length product (DLP) was 191.53 mGy-cm. Ite rative reconstruction was used. COMPARISON: 11/24/2021 FINDINGS: There is moderate emphysema. The lungs are free of focal airspace opacities. There is an ap proximately 2.1 x 2.1 cm soft tissue density in the subcarinal region involving the anterior wall of the esophagus. This previously measured approximately 3.5 x 3.0 cm. The heart size is normal. No pleu ral effusion or pneumothorax. A left internal jugular Port-A-Cath ends with its tip in the superior v ghazala cava. There is moderate thoracic spondylosis. There is nodularity of the liver surface, consisten t with cirrhosis. Cysts of the visualized kidneys measure up to 4 cm on the right. There is a small s liding hiatal hernia. There is moderate to severe lumbar spondylosis. IMPRESSION: 1. Subcarinal mass involving the anterior esophagus with decrease in size. Reviewed, dictated and finalized at location F.
== END 2022-05-22 08:46 | disposition home or self-care (01) ==
PROVIDERS: PCP Internal Medicine; Visit Provider Internal Medicine Hematology & Oncology
DX: C34.90 Malignant neoplasm of unspecified part of unspecified bronchus or lung (principal)
CPT/HCPCS: 71260; Q9967

== ENCOUNTER 2022-06-06 01:57 | Day surgery (SDC) | payer MEDICARE, SELFPAY ==
[2022-06-03 15:34] VITALS: BMI 22.4
--- NOTE | 2022-06-05 14:50 | WPDANESEPPF ---
Anes - Initial Pre Proc Eval Procedure: Operation Date: 06/06/22 10:15 Proposed Procedures p Esophagogastroduodenoscopy - Brendan Thompson MD <Rene Garcia DO - Last Filed: 06/05/22 14:51> Date/Time: 06/05/22 14:50 <Rene Garcia DO - Last Filed: 06/05/22 14:51> Surgeon: Brendan Thompson MD <Rene Garcia DO - Last Filed: 06/05/22 14:51> Pre Op Diagnosis: dysphagia <Rene Garcia DO - Last Filed: 06/05/22 14:51> Patient Data Age: 77 Gender: M Height: 1.75 m Weight: 69 kg <Rene Garcia DO - Last Filed: 06/05/22 14:51> Allergies Allergy/AdvReac Type Severity Reaction Status Date / Time No Known Allergies Allergy Verified 06/06/22 09:39 <Rene Garcia DO - Last Filed: 06/05/22 14:51> Home Medications Medication Instructions Recorded Confirmed Type potassium chloride 20 mEq 20 meq PO DAILY 03/29/20 06/06/22 History tablet,extended release tiotropium 2.5 mcg-olodaterol 2.5 2 puff inhalation DAILY #4 grams 12/24/21 06/06/22 Rx mcg/actuation mist for inhalation metoprolol tartrate 25 mg tablet 25 mg PO BID 03/13/22 06/06/22 History lovastatin 40 mg tablet 20 mg PO DAILY 06/06/22 06/06/22 History pantoprazole 40 mg granules 40 mg PO DAILY 06/06/22 06/06/22 History delayed-release for susp in packet <Rene Garcia DO - Last Filed: 06/05/22 14:51> Patient hx anesthesia problems: none <Shanelle Lai CRNA - Last Filed: 06/06/22 10:19> Family hx anesthesia problems: none <Shanelle Lai CRNA - Last Filed: 06/06/22 10:19> Results Review: All pre-operative results and documents have been reviewed as part of the pre-operative evaluation. <Rene Garcia DO - Last Filed: 06/05/22 14:51> [facility] Past Medical History Medical History: Medical History COPD (chronic obstructive pulmonary disease) Esophageal stricture High blood pressure High cholesterol Positive occult stool blood test Tobacco abuse <Rene Garcia DO - Last Filed: 06/05/22 14:51> Social History Social History: Social History Smoking packs per day: 2.5 Smoking cigarettes per day: 50.0 Years smoked: 65 Smoking pack-years: 162.50 Smoking status: Former smoker Tobacco type: cigarettes Smoking end date: 04/11/20 Alcohol intake: current Drinks per week: 7 Alcohol use details: WINE IN JES. Substance use: never Substance use type: does not use Living arrangements: with family Gender identity (if verbalized by the patient): Male Spiritual care concerns: No <Rene Garcia DO - Last Filed: 06/05/22 14:51> Anes - Eval Final PreProcedure Day of Procedure 06/05/22 14:50 <Rene Garcia DO - Last Filed: 06/05/22 14:51> Patient weight: normal <Rene Garcia DO - Last Filed: 06/05/22 14:51> Heart: regular rate and rhythm <Rene Garcia DO - Last Filed: 06/05/22 14:51> Lungs: clear to auscultation <Rene Garcia DO - Last Filed: 06/05/22 14:51> Airway: Mallampati scale class II <Rene Garcia DO - Last Filed: 06/05/22 14:51> Neurological: alert and oriented <Rene Garcia DO - Last Filed: 06/05/22 14:51> Last oral intake: >/= 8 hours <Rene Garcia DO - Last Filed: 06/05/22 14:51> ASA classification: III <Rene Garcia DO - Last Filed: 06/05/22 14:51> Emergent: no <Rene Garcia DO - Last Filed: 06/05/22 14:51> Anesthetic plan: proceed <Rene Garcia DO - Last Filed: 06/05/22 14:51> Anesthesia type and monitoring: general GIVS and standard monitoring <Rene Garcia DO - Last Filed: 06/05/22 14:51> Results Review: All pre-operative results and documents have
[2022-06-06 09:40] VITALS: BP 143/85; PULSE 105; RESP 20; TEMP 36.4; O2SAT 98; BMI 21.9
[2022-06-06] MEDS: LACTATED RINGERS 1,000 ML 150 ML IV CONT (10:04)
--- NOTE | 2022-06-06 10:08 | PM.IMHP ---
H&P: HPI History of Present Illness Date/Time: 06/06/22 10:08 Chief Complaint: Dysphagia and weight loss Narrative: this is a 77-year-old white male patient who is known to have a lung carcinoma. Initially diagnosed in October of 2021. Patient has been followed by Dr. Rodriguez. In January of 2022 he was seen at [facility] in EGD was performed apparently attempts were made to dilate the esophagus and the PEG tube was placed. Patient reports that over the last 3 months he has had increasing difficulty swallowing. For this reason he is referred to our service for evaluation. Patient has a prior history of GE reflux esophageal web. He has a history of narrowing of the midesophagus identified by endoscopy in October of 2021. At that time esophageal mass was identified. Additionally patient has been followed at [facility] and attempts at dilatation and ultimately a PEG tube was placed around January of 2022. Patient states that he currently is able to eat scrambled eggs but difficulty with liquids. He states he is losing weight. He does use a PEG tube and receives nutritional support via this on a daily basis. Patient denies any heartburn or acid reflux at present. He continues on pantoprazole 40mg p.o. daily because of a prior history. Family history is noncontributory. Review of Systems Review of Systems: Review of systems noncontributory. [facility] Past Medical History Medical History (Updated 02/11/22 @ 14:16 by Analia Hart Mai, MD) COPD (chronic obstructive pulmonary disease) Esophageal stricture High blood pressure High cholesterol Positive occult stool blood test Tobacco abuse Social History Social History Smoking packs per day: 2.5 Smoking cigarettes per day: 50.0 Years smoked: 65 Smoking pack-years: 162.50 Smoking status: Former smoker Tobacco type: cigarettes Smoking end date: 04/11/20 Alcohol intake: current Drinks per week: 7 Alcohol use details: WINE IN JES. Substance use: never Substance use type: does not use Living arrangements: with family Gender identity (if verbalized by the patient): Male Spiritual care concerns: No Meds Home Medications and Allergies Home Medications Medication Instructions Recorded Confirmed Type potassium chloride 20 mEq 20 meq PO DAILY 03/29/20 06/03/22 History tablet,extended release tiotropium 2.5 mcg-olodaterol 2.5 2 puff inhalation DAILY #4 grams 12/24/21 06/03/22 Rx mcg/actuation mist for inhalation metoprolol tartrate 25 mg tablet 25 mg PO BID 03/13/22 06/03/22 History lovastatin 40 mg tablet 20 mg PO DAILY 06/06/22 06/06/22 History pantoprazole 40 mg granules 40 mg PO DAILY 06/06/22 06/06/22 History delayed-release for susp in packet Allergies Allergy/AdvReac Type Severity Reaction Status Date / Time No Known Allergies Allergy Verified 06/06/22 09:39 Vital Signs Vital Signs - 24 hr 06/06/22 09:40 Temperature 97.6 F Pulse Rate 105 H Respiratory Rate 20 Blood Pressure 143/85 H Pulse Oximetry 98 Oxygen Delivery Room Air Exam Narrative: Physical exam reveals patient to be alert. Vital signs stable. HEENT exam reveals significant hair loss. He has lost a significant amount of weight. Lungs are revealed few rhonchi. Heart without murmur. Abdomen PEG tube in place in left upper quadrant PEG tube site healed well. Abdomen bowel sounds present soft nontender with no organomegaly. Extremities are without clubbing cyanosis or edema. Assessment and Plan Assessment and plan (1) Dysphagia: Code(s): R13.10 - Dysphagia, unspecified Status: Acute Assessment and Plan: Patient with worsening dysphagia. He is known to have a lung mass consistent with cancer is now status post radiation therapy. And a distant history of acid reflux and esophageal web. Differential diagnosis includes web recurrence versus stricture from radiation therapy versus omar
[2022-06-06] MEDS: BENZOCAINE (*SP) 60 ML SPRAY CAN (HURRICAINE) 1 SPRAY MUCOUS MEM (10:23)
[2022-06-06 10:41] VITALS: BP 122/80; PULSE 91; RESP 18; O2SAT 98
[2022-06-06 10:51] VITALS: BP 128/75; PULSE 88; RESP 18; O2SAT 98
[2022-06-06 11:01] VITALS: BP 120/68; PULSE 89; RESP 18; O2SAT 98
[2022-06-06] MEDS: HEPARIN SODIUM LOCK FLUSH 500 UNITS/5 ML SYRINGE IV PUSH (11:01)
--- NOTE | 2022-06-06 11:12 | SUR.PHASEII ---
POrt cath was flushed with heparin and DC'd
== END 2022-06-06 11:16 | disposition home or self-care (01) ==
PROVIDERS: PCP Internal Medicine; Visit Provider Internal Medicine Gastroenterology
PROC: 0DJ08ZZ Inspection of Upper Intestinal Tract, Via Natural or Artificial Opening Endoscopic (ICD-10-PCS; CPT 43235; principal; 2022-06-06 10:15)
DX: R13.10 Dysphagia, unspecified (principal); K22.2 Esophageal obstruction; Q39.4 Esophageal web; Z93.1 Gastrostomy status; Z86.010 Personal history of colon polyps; Z85.118 Personal history of other malignant neoplasm of bronchus and lung; J44.9 Chronic obstructive pulmonary disease, unspecified; E78.00 Pure hypercholesterolemia, unspecified; R03.0 Elevated blood-pressure reading, without diagnosis of hypertension; Z87.891 Personal history of nicotine dependence; C34.90 Malignant neoplasm of unspecified part of unspecified bronchus or lung
CPT/HCPCS: 43450; 43235; J2704; J7120

== ENCOUNTER 2022-08-29 08:24 | Outpatient (CLI) | payer MEDICARE, SELFPAY ==
--- NOTE | ~2022-08-29 | CT_ITS ---
EXAMINATION:CT diagnostic chest w con DATE: 08/29/2022 08:50 INDICATION: Lung cancer. TECHNIQUE: Computed tomography (CT) of the chest was performed with 75 mL Omnipaque 350 intravenous c ontrast. Automated exposure control and iterative reconstruction technique were employed. The dose-le ngth product (DLP) was 172.21 mGy-cm. COMPARISON: Chest CT 05/22/2022, 11/24/21, 02/25/21 FINDINGS: There is severe emphysema. There is mild dependent atelectasis bilaterally. Calcified bilat eral lung nodules and calcified left hilar lymph nodes are consistent with old granulomas disease. Th e heart size is normal. There are coronary artery calcifications. No pericardial effusion. There is a left subclavian port with tip in superior vena cava. There is a 3.0 x 2.6 cm mass involving the ante rior esophageal wall and subcarinal region. There is a gastrostomy tube in expected position. There i s a 4 mm cyst in the liver. There are cysts in the kidneys measuring up to 3.8 cm on the right. There is severe thoracic spondylosis. There is mild chronic anterior wedging of multiple vertebral bodies. IMPRESSION: 1. Stable mass involving the esophageal wall and subcarinal region, consistent with malignancy. 2. Severe emphysema. Reviewed, dictated and finalized at location B.
[2022-08-29 08:46] LABS: Estimated Glomerular Filt Rate > 60
== END 2022-08-29 08:25 | disposition home or self-care (01) ==
PROVIDERS: PCP Internal Medicine; Visit Provider Internal Medicine Hematology & Oncology
DX: C34.90 Malignant neoplasm of unspecified part of unspecified bronchus or lung (principal); J43.9 Emphysema, unspecified
CPT/HCPCS: 71260; Q9967

== ENCOUNTER 2022-12-01 08:30 | Outpatient (CLI) | payer MEDICARE, SELFPAY ==
--- NOTE | ~2022-12-01 | CT_ITS ---
EXAMINATION: CT diagnostic chest w con DATE: 12/01/2022 09:03 INDICATION: Malignant neoplasm of the lung TECHNIQUE: Transaxial computed tomographic images of the chest were obtained after the administration of 75 cc of Omnipaque 350 intravenous contrast. The dose-length product (DLP) was 230.84 mGy-cm. Ite rative reconstruction was used. COMPARISON: 08/29/2022 FINDINGS: There is severe emphysema. Again seen is a mass involving the anterior wall of the esophagu s extending into the subcarinal region without significant interval change. Calcified pulmonary nodul es and calcified left hilar lymph nodes are consistent with old granulomatous disease. The heart size is normal. There is calcified coronary artery atherosclerosis. The gastrostomy is been removed. Cyst s of the visualized kidneys measure up to 3.7 cm on the right. There is severe thoracic spondylosis. IMPRESSION: 1. Unchanged mass of the anterior esophageal wall extending into the subcarinal region. 2. Severe emphysema. Reviewed, dictated and finalized at location B. [employer]
[2022-12-01 08:52] LABS: Estimated Glomerular Filt Rate > 60
== END 2022-12-01 08:31 | disposition home or self-care (01) ==
PROVIDERS: PCP Family Medicine; Visit Provider Internal Medicine Hematology & Oncology
DX: C34.90 Malignant neoplasm of unspecified part of unspecified bronchus or lung (principal); J43.9 Emphysema, unspecified
CPT/HCPCS: 71260; Q9967

== ENCOUNTER 2023-03-09 10:55 | Outpatient (CLI) | payer MEDICARE, SELFPAY ==
--- NOTE | ~2023-03-09 | CT_ITS ---
Clinical Indication: Lung cancer CT Scan of the Chest with Contrast: Technique: Contiguous sections were acquired throughout the chest after intravenous administration of 75 cc of Omnipaque 350. Dose reduction technique was used on this scan by utilizing automated exposu re control and iterative reconstruction technique. The dose-length product (DLP) was 241.42 mGy-cm. COMPARISON: 12/01/2022 Findings: There is no evidence of any significant mediastinal, hilar or axillary lymphadenopathy. There is no f illing defect in the pulmonary arterial tree to suggest pulmonary embolus. There is no evidence of ao rtic dissection or aneurysm. There are atherosclerotic calcifications of the aorta. There is focal wa ll thickening of the mid to distal esophagus. There is no evidence of pleural or pericardial effusion. Severe emphysema present. No suspicious pulmonary nodule evident. Images through the upper abdomen reveal no abnormalities. Impression: Stable wall thickening of the mid esophagus. Correlate for esophagitis versus any possibility of esop hageal neoplasm. Severe emphysema. No suspicious pulmonary nodule. Reviewed, dictated and finalized at [facility]. Impression: Stable wall thickening of the mid esophagus. Correlate for esophagitis versus a ny possibility of esophageal neoplasm. Severe emphysema. No suspicious pulmonary nodule.
[2023-03-09 11:39] LABS: Estimated Glomerular Filt Rate > 60
== END 2023-03-09 10:56 | disposition home or self-care (01) ==
PROVIDERS: PCP Family Medicine; Visit Provider Internal Medicine Hematology & Oncology
DX: C34.90 Malignant neoplasm of unspecified part of unspecified bronchus or lung (principal); K22.89 Other specified disease of esophagus; J43.9 Emphysema, unspecified
CPT/HCPCS: 71260; Q9967

== ENCOUNTER 2023-06-02 08:48 | Outpatient (CLI) | payer MEDICARE, SELFPAY ==
--- NOTE | ~2023-06-02 | CT_ITS ---
Clinical Indication: Lung cancer CT Scan of the Chest with Contrast: Technique: Contiguous sections were acquired throughout the chest after intravenous administration of 75 cc of Omnipaque 350. Dose reduction technique was used on this scan by utilizing automated exposu re control and iterative reconstruction technique. The dose-length product (DLP) was 245.61 mGy-cm. COMPARISON: 03/09/2023 Findings: There is no evidence of any significant mediastinal, hilar or axillary lymphadenopathy. There is no f illing defect in the pulmonary arterial tree to suggest pulmonary embolus. There is no evidence of ao rtic dissection or aneurysm. Wall thickening of the esophagus at the level of the farhan is similar to prior exam. There is no evidence of pleural or pericardial effusion. Severe emphysema noted. No suspicious pulmonary nodule seen. Images through the upper abdomen reveal no abnormalities. Impression: Severe emphysema. Stable wall thickening of the esophagus at the level of farhan. Reviewed, dictated and finalized at [facility]. Impression: Severe emphysema. Stable wall thickening of the esophagus at the level of farhan.
[2023-06-02 09:09] LABS: Estimated Glomerular Filt Rate > 60
== END 2023-06-02 08:49 | disposition home or self-care (01) ==
LOC: ANHIMG 08:52
PROVIDERS: PCP Family Medicine; Visit Provider Internal Medicine Hematology & Oncology
DX: C34.90 Malignant neoplasm of unspecified part of unspecified bronchus or lung (principal); J43.9 Emphysema, unspecified
CPT/HCPCS: 71260; Q9967

== ENCOUNTER 2023-06-29 01:56 | Day surgery (SDC) | payer MEDICARE, SELFPAY ==
[2023-06-24 09:00] VITALS: BMI 23.9
--- NOTE | 2023-06-24 09:10 | PC.NURSE ---
Report to the Outpatient Waiting Room, entrance under the green pavilion located off [facility], at time __0700 on date _06/29/23___. Planned Procedure Time: ___09 . Time changes happen often and if your time is changed the preop area will call you the afternoon before. - You and your visitor will be asked to self-screen and do not enter if you have any COVID symptoms. - A mask is optional within the hospital at this time. Patients may have clear liquids (water, carbonated beverages, clear teas, apple juice) until 3 hours prior to surgery (0600 AM) with a maximum of 20 ounces. - No food from midnight until time of surgery - Infants may have breast milk until 4 hours before surgery, formula 6 hours prior to surgery. - Children will be allowed to drink immediately following surgery. If applicable, please bring a bottle or sippy cup to assist with drinking. Juice, water, soda, and popsicles are readily available. For infants on formula, please bring formula the day of surgery. Pacifiers are allowed. Take the following medications with a SIP of water the morning of surgery: METOPROLOL INHALER DO NOT STOP ANY OF YOUR OTHER PRESCRIPTION MEDICATIONS PRIOR TO SURGERY ?EXCEPT THE FOLLOWING Medications to discontinue per physician Date to take last dose Please no make-up, nail chinese, hairspray, perfume, deodorant, or body powder the day of surgery. No jewelry (including any body piercings) or valuables the day of surgery, leave them at home. Please take a shower or bath the night before, or the morning of, surgery with an antibacterial soap. Wear comfortable, loose fitting clothing. Children are encouraged to wear pajamas. - Jewelry must be removed prior to entering the operating room. Rings and piercings that are not removed may be cut off. - The hospital will not accept responsibility for valuables. - Please leave all valuables, including medications, at home the day of surgery. If you are going home after surgery, a licensed class c truck driver must drive you home. - NO public transportation without another adult if you receive anesthesia. - We recommend that an adult stay with you for 24 hours following discharge. - We also recommend that you do not drive, make important decision, drink alcoholic beverages, or take any drugs that were not prescribed by your health care provider for at least 24 hours after your discharge time. For Pediatric surgeries, we recommend two adults accompany the child home. Follow any additional instructions given to you from your surgeon. If you or anyone in your household have experienced Covid symptoms in the past week, please notify your surgeon or the nurse liaison at the phone number below for possible testing. Telephone instructions given to ____PT'S SPOUSE and asked if any additional questions and then verbalized understanding. Patient advised to call surgeon office or pre surgery nurse liaison [phone] if any additional questions.
[2023-06-29 06:46] VITALS: BP 145/82; PULSE 82; RESP 18; TEMP 36.3; O2SAT 94
[2023-06-29 06:48] VITALS: BMI 24.1
[2023-06-29] MEDS: LACTATED RINGERS 1,000 ML 30 ML IV CONT (07:15)
--- NOTE | 2023-06-29 07:25 | PM.IMHP ---
H&P: HPI History of Present Illness Date/Time: 06/29/23 07:25 Chief Complaint: non small cell lung cancer Narrative: Pt is a 78 y/o M s/p chemoradiation for non small cell lung cancer. Pt had L sided VAD placed 9 mos ago for access. Pt denies any issues c VAD. Review of Systems Review of Systems: All systems reviewed & are unremarkable except as noted in HPI and below PMFSH Past Medical History Medical History (Updated 06/29/23 @ 07:28 by Melissa Waters MD) COPD (chronic obstructive pulmonary disease) Esophageal stricture resolved with radiation treatment from lung CA 2021 High blood pressure High cholesterol History of colon polyps Squamous cell lung cancer radiation 2021 Tobacco abuse quit 3 yrs ago 2019 Surgical History Surgical History H/O colonoscopy 05/2020 Dr. Thompson H/O endoscopy 04/09/23 H/O esophagogastroduodenoscopy Hx of cataract surgery PEG (percutaneous endoscopic gastrostomy) status Family History Family History Father Cancer Mother Hypertension Social History Social History Smoking packs per day: 2.5 Smoking cigarettes per day: 50.0 Years smoked: 65 Smoking pack-years: 162.50 Smoking status: Former smoker Tobacco type: cigarettes Second hand tobacco smoke exposure: No Smoking end date: 04/11/20 Alcohol intake: current Drinks per week: 14 Alcohol use details: 2 GLASSES WINE/NOC Substance use: never Substance use type: does not use Lack of Transportation: No Lack of Food: Never True Current Housing: I Have Housing Concerned About Future Housing: No Difficulty Paying Gas/Electric Bills: No Difficulty Paying for Meds: No Currently Unemployed: No Difficulty w/ Childcare or Family Care: No Living arrangements: with family Occupation/Education: retired Gender identity (if verbalized by the patient): Male Spiritual care concerns: No Agree to blood products: Yes Meds Home Medications and Allergies Home Medications Medication Instructions Recorded Confirmed Type potassium chloride 20 mEq 20 meq PO DAILY 03/29/20 06/24/23 History tablet,extended release metoprolol tartrate 25 mg tablet 25 mg PO BID 03/13/22 06/24/23 History lovastatin 40 mg tablet 20 mg PO DAILY 06/06/22 06/24/23 History pantoprazole 40 mg granules 40 mg PO DAILY 06/06/22 06/24/23 History delayed-release for susp in packet tiotropium 2.5 mcg-olodaterol 2.5 2 puff inhalation DAILY #4 grams 11/10/22 06/24/23 Rx mcg/actuation mist for inhalation albuterol sulfate 90 mcg/actuation 2 inh inhalation Q4H 01/21/23 06/24/23 History aerosol inhaler cholecalciferol (vitamin D3) 25 50 mcg PO DAILY 01/21/23 06/24/23 History mcg (1,000 unit) capsule aspirin 81 mg tablet,delayed 81 mg PO DAILY 01/22/23 06/24/23 History release (Adult Low Dose Aspirin) terbinafine HCl 250 mg tablet 250 mg PO DAILY 6 weeks #42 tabs 06/04/23 06/24/23 Rx cyanocobalamin (vitamin B-12) 1,000 mcg PO DAILY 06/24/23 06/24/23 History 1,000 mcg capsule Allergies Allergy/AdvReac Type Severity Reaction Status Date / Time No Known Allergies Allergy Verified 06/24/23 08:57 Exam Const: General: cooperative, comfortable and no acute distress Chest: Other: L VAD - C/D/I Resp: Auscultation: diminished lung sounds Cardio: Rate: regular rate Rhythm: regular rhythm GI: Inspection: normal to inspection Assessment and Plan Assessment and plan (1) Squamous cell lung cancer: Code(s): C34.90 - Malignant neoplasm of unspecified part of unspecified bronchus or lung Status: Acute Assessment and Plan: will setup for removal of VAD
--- NOTE | 2023-06-29 07:29 | WPDHPUPDATE1 ---
History and Physical Update Update Date/Time: 06/29/23 07:29 History and Physical has been reviewed, including an updated exam of the patient. There are NO changes in the patient's condition. Risks, benefits, and alternatives have been discussed and questions answered. Patient agrees to proceed with procedure.
--- NOTE | 2023-06-29 08:11 | WPDANESEPPF ---
Anes - Initial Pre Proc Eval Procedure: Operation Date: 06/29/23 09:00 Proposed Procedures p Removal Damián Cath - Melissa Waters MD Date/Time: 06/29/23 08:11 Surgeon: Melissa Waters MD Pre Op Diagnosis: Mal Neoplasm of Lung Patient Data Age: 78 Gender: M Height: 1.75 m Weight: 74.2 kg Last Vital Signs Temp 36.3 C L 06/29/23 06:46 Pulse 82 06/29/23 06:46 Resp 18 06/29/23 06:46 BP 145/82 H 06/29/23 06:46 Pulse Ox 94 06/29/23 06:46 O2 Del Method Room Air 06/29/23 06:46 Allergies Allergy/AdvReac Type Severity Reaction Status Date / Time No Known Allergies Allergy Verified 06/29/23 07:34 Home Medications Medication Instructions Recorded Confirmed Type potassium chloride 20 mEq 20 meq PO DAILY 03/29/20 06/24/23 History tablet,extended release metoprolol tartrate 25 mg tablet 25 mg PO BID 03/13/22 06/29/23 History lovastatin 40 mg tablet 20 mg PO DAILY 06/06/22 06/24/23 History pantoprazole 40 mg granules 40 mg PO DAILY 06/06/22 06/24/23 History delayed-release for susp in packet tiotropium 2.5 mcg-olodaterol 2.5 2 puff inhalation DAILY #4 grams 11/10/22 06/24/23 Rx mcg/actuation mist for inhalation albuterol sulfate 90 mcg/actuation 2 inh inhalation Q4H 01/21/23 06/29/23 History aerosol inhaler cholecalciferol (vitamin D3) 25 50 mcg PO DAILY 01/21/23 06/24/23 History mcg (1,000 unit) capsule aspirin 81 mg tablet,delayed 81 mg PO DAILY 01/22/23 06/24/23 History release (Adult Low Dose Aspirin) terbinafine HCl 250 mg tablet 250 mg PO DAILY 6 weeks #42 tabs 06/04/23 06/24/23 Rx cyanocobalamin (vitamin B-12) 1,000 mcg PO DAILY 06/24/23 06/24/23 History 1,000 mcg capsule Patient hx anesthesia problems: none Family hx anesthesia problems: none Results Review: All pre-operative results and documents have been reviewed as part of the pre-operative evaluation. PMF Past Medical History Medical History COPD (chronic obstructive pulmonary disease) Esophageal stricture resolved with radiation treatment from lung CA 2021 High blood pressure High cholesterol History of colon polyps Squamous cell lung cancer radiation 2021 Tobacco abuse quit 3 yrs ago 2019 Surgical History Surgical History H/O colonoscopy 05/2020 Dr. Thompson H/O endoscopy 04/09/23 H/O esophagogastroduodenoscopy Hx of cataract surgery PEG (percutaneous endoscopic gastrostomy) status Family History Family History Father Cancer Mother Hypertension Social History Social History Smoking packs per day: 2.5 Smoking cigarettes per day: 50.0 Years smoked: 65 Smoking pack-years: 162.50 Smoking status: Former smoker Tobacco type: cigarettes Second hand tobacco smoke exposure: No Smoking end date: 04/11/20 Alcohol intake: current Drinks per week: 14 Alcohol use details: 2 GLASSES WINE/NOC Substance use: never Substance use type: does not use Lack of Transportation: No Lack of Food: Never True Current Housing: I Have Housing Concerned About Future Housing: No Difficulty Paying Gas/Electric Bills: No Difficulty Paying for Meds: No Currently Unemployed: No Difficulty w/ Childcare or Family Care: No Living arrangements: with family Occupation/Education: retired Gender identity (if verbalized by the patient): Male Spiritual care concerns: No Agree to blood products: Yes Anes - Eval Final PreProcedure Day of Procedure 06/29/23 08:11 Patient weight: normal Heart: regular rate and rhythm Lungs: decreased breath sounds Airway: Mallampati scale class II Neurological: alert and oriented Last oral intake: >/= 8 hours ASA classification: IV Emergent: no Anesthetic plan: proceed Anesthesia
[2023-06-29] MEDS: ceFAZolin 2 GM/D5W 50 ML 2 GM/50 ML BAG IVPB (08:44)
[2023-06-29] MEDS: BUPIVACAINE/EPINEPHRINE 0.25% 10 ML VIAL 20 ML INFILTRATE (08:53)
--- NOTE | 2023-06-29 09:09 | P.OP_ITS ---
Procedure Note - Detailed Date of Procedure 06/29/23 Pre-op Diagnosis Mal Neoplasm of Lung Post-op Diagnosis Same Procedure Performed removal L chest VAD Surgeon Melissa Waters MD Anesthesia Local Indications 78 y/o M s/p treatment for lung cancer. Pt had L sided VAD placed about 9 mos ago. Findings L SCV VAD Description of Procedure The patient was taken to the operating room and placed in the supine position. The patient was then prepped and draped in the normal sterile fashion. A time- out was then done to verify the patient's identity, as well as the procedure being performed. I began by localizing the area of the previously placed port in the left chest. After the area was adequately anesthetized, I made an incision through the previous incision to gain access to the port in the subcutaneous tissue. I was then able to identify the port and using dissection with the Bovie cautery, I was able to free the reservoir from the subcutaneous pocket. The reservoir was being held in by 2 sutures and these were subsequently cut. I was then able to remove the reservoir from the pocket. I then removed the catheter from the left subclavian vein in full. I then held pressure at the level the left subclavian vein for approximately 5 minutes. Hemostasis was noted and I irrigated the pocket. I then closed the subcutaneous tissue with 3-0 Vicryl suture. The skin was closed with 4-0 Monocryl pham bcuticular suture. Dermabond was placed on the wound. The patient tolerated the procedure well and was alert and awake in the operating room postoperative. The patient will be sent to the recovery room in stable condition. Estimated Blood Loss 5 Drains No Packing No Pathology None sent Complications No immediate complications Condition Stable Disposition PACU [facility] Billing Surgery - Charge Forward: Surgery Billing
[2023-06-29 09:13] VITALS: BP 114/70; PULSE 83; RESP 14; O2SAT 98
[2023-06-29 09:40] VITALS: BP 137/76; PULSE 73; RESP 16
== END 2023-06-29 10:09 | disposition home or self-care (01) ==
PROVIDERS: PCP Physician Assistant Medical; Visit Provider Surgery
PROC: (CPT 36589; principal; 2023-06-29 09:00)
DX: Z45.2 Encounter for adjustment and management of vascular access device (principal); Z85.118 Personal history of other malignant neoplasm of bronchus and lung; Z92.21 Personal history of antineoplastic chemotherapy; I10 Essential (primary) hypertension; J44.9 Chronic obstructive pulmonary disease, unspecified; E78.00 Pure hypercholesterolemia, unspecified; Z87.891 Personal history of nicotine dependence; Z79.51 Long term (current) use of inhaled steroids; Z79.82 Long term (current) use of aspirin
CPT/HCPCS: 36590; J0690; J2405; J2704; J3010; J7120

== ENCOUNTER 2023-10-07 08:00 | Outpatient (CLI) | payer MEDICARE, SELFPAY ==
--- NOTE | ~2023-10-07 | CT_ITS ---
Clinical Indication: Lung cancer CT Scan of the Chest with Contrast: Technique: Contiguous sections were acquired throughout the chest after intravenous administration of 25 cc of Omnipaque 350. Dose reduction technique was used on this scan by utilizing automated exposu re control and iterative reconstruction technique. The dose-length product (DLP) was 229.40 mGy-cm. COMPARISON: 06/02/2023 Findings: There is no evidence of any significant mediastinal, hilar or axillary lymphadenopathy. There is no f illing defect in the pulmonary arterial tree to suggest pulmonary embolus. There is no evidence of ao rtic dissection or aneurysm. Possible mild wall thickening of the midesophagus, unchanged. Stable chronic scarring or atelectasis at the anteromedial right middle lobe. There is a new area of probable atelectasis and/or scarring in the superior segment right lower lobe. Severe emphysema again noted. The lungs are clear. No pulmonary nodules or infiltrates are noted. Images through the upper abdomen reveal no abnormalities. Impression: Stable wall thickening of the midesophagus. Probable scarring or atelectasis in the superior segment right lower lobe. Neoplasm felt to be unlike ly given relatively rapid development since 06/02/2023. Additional chronic scarring anteromedial right middle lobe. Severe emphysema, unchanged. Reviewed, dictated and finalized at location . [employer] Impression: Stable wall thickening of the midesophagus. Probable scarring or atelectasis in the superior segment right lower lobe. Neop lasm felt to be unlikely given relatively rapid development since 06/02/2023. Additional chronic scarring anteromedial right middle lobe. Severe emphysema, unchanged.
[2023-10-07 08:26] LABS: Estimated Glomerular Filt Rate > 60
== END 2023-10-07 08:01 | disposition home or self-care (01) ==
LOC: ANHIMG 08:04
PROVIDERS: PCP Physician Assistant Medical; Visit Provider Internal Medicine Hematology & Oncology
DX: C34.90 Malignant neoplasm of unspecified part of unspecified bronchus or lung (principal); J43.9 Emphysema, unspecified
CPT/HCPCS: 71260; Q9967

== ENCOUNTER 2023-10-14 09:49 | Outpatient (CLI) | payer MEDICARE, SELFPAY ==
[2023-10-14 10:06] LABS: Basophils Percent Auto 0.7 % (0.2-1.2); Eosinophils Absolute Auto 0.2 K/mm3 (0-0.3); Eosinophils Percent Auto 3.5 % (0-4.4); Hematocrit 41.3 % (42.0-52.0); Hemoglobin 13.6 g/dL (14.0-18.0); Immature Granulocyte Absolute 0.02 K/mm3 (0.00-0.031); Immature Granulocyte Percent A 0.3 % (0-0.5); Lymphocytes Absolute Auto 0.92 K/mm3 (0.9-3.2); Lymphocytes Percent Auto 15.2 % (18.3-44.2); Mean Corpuscular HGB Conc 32.9 g/dl (32-36); Mean Corpuscular Hemoglobin 32.2 pg (26-34); Mean Corpuscular Volume 97.6 fl (80-100); Mean Platelet Volume 9.6 fl (7.4-10.4); Monocytes Absolute Auto 0.6 K/mm3 (0.1-0.6); Monocytes Percent Auto 9.6 % (2.6-8.5); Neutrophils Absolute Auto 4.3 K/mm3 (1.3-6.7); Neutrophils Percent Auto 70.7 % (45.5-73.1); Platelet Count Result 268 k/mm3 (150-375); Red Blood Count 4.23 M/mm3 (4.6-6.20); Red Cell Distribution Width 13.7 % (11.5-14.5); White Blood Count 6.1 K/mm3 (4.5-10.0)
[2023-10-14 10:10] LABS: Blood Urea Nitrogen 15 mg/dL (8-26); Carbon Dioxide 25 mmol/L (22-30); Chloride 105 mmol/L (98-109); Estimated Glomerular Filt Rate 59; Glucose 83 mg/dL (70-105); Ionized Calcium (POC) 1.24 mmol/L (1.11-1.31); Potassium 4.3 mmol/L (3.5-4.9); Sodium 141 mmol/L (138-146)
[2023-10-14 11:46] LABS: Alanine Aminotransferase 16 U/L (6-50); Albumin Level 4.1 g/dL (3.5-5.1); Alkaline Phosphatase 54 U/L (38-126); Anion Gap 9 mmol/L (8-16); Aspartate Amino Transferase 21 U/L (17-59); Bilirubin,Total 0.9 mg/dL (0.2-1.3); Blood Urea Nitrogen 15 mg/dL (9-20); Calcium 9.2 mg/dL (8.4-10.2); Carbon Dioxide 24 mmol/L (22-30); Chloride 107 mmol/L (98-107); Estimated Glomerular Filt Rate > 60; Glucose 82 mg/dL (65-110); Potassium 4.3 mmol/L (3.4-5.0); Sodium 140 mmol/L (137-145)
== END 2023-10-14 09:50 | disposition home or self-care (01) ==
LOC: ANHLAB 09:51
PROVIDERS: PCP Physician Assistant Medical; Visit Provider Internal Medicine Hematology & Oncology
DX: C34.90 Malignant neoplasm of unspecified part of unspecified bronchus or lung (principal)
CPT/HCPCS: 36415; 80047; 80053; 85025

== ENCOUNTER 2023-11-26 09:12 | Outpatient (CLI) | payer MEDICARE, SELFPAY ==
[2023-11-30 15:24] LABS: Alpha-1-Antitrypsin, QN 134 mg/dL (83-199)
== END 2023-11-26 09:13 | disposition home or self-care (01) ==
PROVIDERS: PCP Physician Assistant Medical; Visit Provider Internal Medicine Pulmonary Disease
DX: J44.9 Chronic obstructive pulmonary disease, unspecified (principal)
CPT/HCPCS: 36415; 82103

== ENCOUNTER 2024-01-28 09:34 | Outpatient (CLI) | payer MEDICARE, SELFPAY ==
--- NOTE | ~2024-01-28 | CT_ITS ---
Clinical Indication: Lung cancer CT Scan of the Chest with Contrast: Technique: Contiguous sections were acquired throughout the chest after intravenous administration of 100 cc of Omnipaque 350. Dose reduction technique was used on this scan by utilizing automated expos ure control and iterative reconstruction technique. The dose-length product (DLP) was 253.23 mGy-cm. COMPARISON: 10/07/2023 Findings: There is no evidence of any significant mediastinal, hilar or axillary lymphadenopathy. There is no f illing defect in the pulmonary arterial tree to suggest pulmonary embolus. There is no evidence of ao rtic dissection or aneurysm. Atherosclerotic calcifications of the aorta and coronary arteries are pr esent. There is probable extensive esophageal wall thickening, especially the midesophagus. There is no evidence of pleural or pericardial effusion. Somewhat nodular scarring, possibly treated disease, is again present at the superior segment right l ower lobe, mildly decreased in extent from prior exam. Severe emphysema present. Calcified left lower lobe granulomas are present. Images through the upper abdomen reveal no abnormalities. Multiple mild spinal compression fractures are stable from prior exam. Impression: Mild interval decrease in nodular lesion in the superior segment right lower lobe, which could reflec t chronic scarring/atelectasis or possibly posttreatment change/treated disease. Severe emphysema. Extensive wall thickening of the midesophagus, unchanged from prior exam. Correlate for esophagitis. Reviewed, dictated and finalized at [facility]. O ACCOMPANIST Impression: Mild interval decrease in nodular lesion in the superior segment right lower lo be, which could reflect chronic scarring/atelectasis or possibly posttreatment change/treated disease. Severe emphysema. Extensive wall thickening of the midesophagus, unchanged from prior exam. Corre late for esophagitis.
[2024-01-28 10:21] LABS: Estimated Glomerular Filt Rate > 60
== END 2024-01-28 09:35 | disposition home or self-care (01) ==
LOC: ANHIMG 09:37
PROVIDERS: PCP Physician Assistant Medical; Visit Provider Internal Medicine Hematology & Oncology
DX: C34.90 Malignant neoplasm of unspecified part of unspecified bronchus or lung (principal); J43.9 Emphysema, unspecified
CPT/HCPCS: 71260; Q9967

== ENCOUNTER 2024-02-08 12:17 | Outpatient (CLI) | payer MEDICARE, SELFPAY ==
[2024-02-08 12:33] LABS: Basophils Percent Auto 0.6 % (0.2-1.2); Eosinophils Absolute Auto 0.2 K/mm3 (0-0.3); Eosinophils Percent Auto 2.7 % (0-4.4); Hematocrit 42.7 % (42.0-52.0); Immature Granulocyte Absolute 0.04 K/mm3 (0.00-0.031); Immature Granulocyte Percent A 0.6 % (0-0.5); Lymphocytes Absolute Auto 0.82 K/mm3 (0.9-3.2); Lymphocytes Percent Auto 11.6 % (18.3-44.2); Mean Corpuscular HGB Conc 32.8 g/dl (32-36); Mean Corpuscular Volume 97.7 fl (80-100); Mean Platelet Volume 9.4 fl (7.4-10.4); Monocytes Absolute Auto 0.5 K/mm3 (0.1-0.6); Monocytes Percent Auto 6.9 % (2.6-8.5); Neutrophils Absolute Auto 5.5 K/mm3 (1.3-6.7); Neutrophils Percent Auto 77.6 % (45.5-73.1); Platelet Count Result 287 k/mm3 (150-375); Red Blood Count 4.37 M/mm3 (4.6-6.20); Red Cell Distribution Width 14.1 % (11.5-14.5); White Blood Count 7.1 K/mm3 (4.5-10.0)
[2024-02-08 14:04] LABS: Alanine Aminotransferase 26 U/L (6-50); Albumin Level 4.1 g/dL (3.5-5.1); Alkaline Phosphatase 66 U/L (38-126); Anion Gap 5 mmol/L (8-16); Aspartate Amino Transferase 34 U/L (17-59); Bilirubin,Total 1.1 mg/dL (0.2-1.3); Blood Urea Nitrogen 12 mg/dL (9-20); Calcium 9.6 mg/dL (8.4-10.2); Carbon Dioxide 25 mmol/L (22-30); Chloride 109 mmol/L (98-107); Estimated Glomerular Filt Rate > 60; Glucose 103 mg/dL (65-110); Potassium 4.4 mmol/L (3.4-5.0); Sodium 139 mmol/L (137-145)
== END 2024-02-08 12:18 | disposition home or self-care (01) ==
LOC: ANHLAB 12:18
PROVIDERS: PCP Physician Assistant Medical; Visit Provider Internal Medicine Hematology & Oncology
DX: C34.90 Malignant neoplasm of unspecified part of unspecified bronchus or lung (principal)
CPT/HCPCS: 36415; 80053; 85025

== ENCOUNTER 2024-06-10 08:52 | Outpatient (CLI) | payer MEDICARE, SELFPAY ==
--- NOTE | ~2024-06-10 | CT_ITS ---
Clinical Indication: Lung cancer CT Scan of the Chest with Contrast: Technique: Contiguous sections were acquired throughout the chest after intravenous administration of 75 cc of Omnipaque 350. Dose reduction technique was used on this scan by utilizing automated exposu re control and iterative reconstruction technique. The dose-length product (DLP) was 218.43 mGy-cm. COMPARISON: 01/28/2024 Findings: There is no evidence of any significant mediastinal, hilar or axillary lymphadenopathy. There is no f illing defect in the pulmonary arterial tree to suggest pulmonary embolus. There is no evidence of ao rtic dissection or aneurysm. There is probable mild diffuse esophageal wall thickening. There is no evidence of pleural or pericardial effusion. Severe emphysema present. Stable 1.6 m right lower lobe pulmonary nodule. Images through the upper abdomen reveal diffuse hepatic steatosis. Stable T6 compression fracture. St able mild loss of height at T12 and L1. Impression: Stable 1.6 cm right lower lobe pulmonary nodule. Severe emphysema. Extensive esophageal wall thickening could reflect esophagitis. Diffuse hepatic steatosis. Stable compression fractures, as above. Reviewed, dictated and finalized at [facility]. Impression: Stable 1.6 cm right lower lobe pulmonary nodule. Severe emphysema. Extensive esophageal wall thickening could reflect esophagitis. Diffuse hepatic steatosis. Stable compression fractures, as above.
[2024-06-10 09:30] LABS: Estimated Glomerular Filt Rate > 60
== END 2024-06-10 08:53 | disposition home or self-care (01) ==
PROVIDERS: PCP Physician Assistant Medical; Visit Provider Internal Medicine Hematology & Oncology
DX: C34.90 Malignant neoplasm of unspecified part of unspecified bronchus or lung (principal); J43.9 Emphysema, unspecified; K76.0 Fatty (change of) liver, not elsewhere classified; R91.1 Solitary pulmonary nodule
CPT/HCPCS: 71260; Q9967

== ENCOUNTER 2024-06-17 09:16 | Outpatient (CLI) | payer MEDICARE, SELFPAY ==
[2024-06-17 09:34] LABS: Basophils Percent Auto 0.7 % (0.2-1.2); Eosinophils Absolute Auto 0.2 K/mm3 (0-0.3); Eosinophils Percent Auto 3.1 % (0-4.4); Hematocrit 43.2 % (42.0-52.0); Hemoglobin 14.3 g/dL (14.0-18.0); Immature Granulocyte Absolute 0.04 K/mm3 (0.00-0.031); Immature Granulocyte Percent A 0.7 % (0-0.5); Lymphocytes Absolute Auto 0.65 K/mm3 (0.9-3.2); Lymphocytes Percent Auto 11.8 % (18.3-44.2); Mean Corpuscular HGB Conc 33.1 g/dl (32-36); Mean Corpuscular Hemoglobin 32.1 pg (26-34); Mean Corpuscular Volume 97.1 fl (80-100); Mean Platelet Volume 9.6 fl (7.4-10.4); Monocytes Absolute Auto 0.4 K/mm3 (0.1-0.6); Monocytes Percent Auto 7.3 % (2.6-8.5); Neutrophils Absolute Auto 4.2 K/mm3 (1.3-6.7); Neutrophils Percent Auto 76.4 % (45.5-73.1); Platelet Count Result 226 k/mm3 (150-375); Red Blood Count 4.45 M/mm3 (4.6-6.20); Red Cell Distribution Width 14.4 % (11.5-14.5); White Blood Count 5.5 K/mm3 (4.5-10.0)
[2024-06-17 09:37] LABS: Blood Urea Nitrogen 10 mg/dL (8-26); Carbon Dioxide 24 mmol/L (22-30); Chloride 104 mmol/L (98-109); Estimated Glomerular Filt Rate 59; Glucose 98 mg/dL (70-105); Ionized Calcium (POC) 1.22 mmol/L (1.11-1.31); Potassium 4.3 mmol/L (3.5-4.9); Sodium 139 mmol/L (138-146)
[2024-06-17 14:35] LABS: Alanine Aminotransferase 24 U/L (6-50); Albumin Level 4.2 g/dL (3.5-5.1); Alkaline Phosphatase 61 U/L (38-126); Anion Gap 10 mmol/L (4-12); Aspartate Amino Transferase 28 U/L (17-59); Bilirubin,Total 1.2 mg/dL (0.2-1.3); Blood Urea Nitrogen 12 mg/dL (9-20); Calcium 9.3 mg/dL (8.4-10.2); Carbon Dioxide 25 mmol/L (22-30); Chloride 103 mmol/L (98-107); Estimated Glomerular Filt Rate > 60; Glucose 96 mg/dL (65-110); Potassium 4.4 mmol/L (3.4-5.0); Sodium 138 mmol/L (137-145)
== END 2024-06-17 09:17 | disposition home or self-care (01) ==
PROVIDERS: PCP Physician Assistant Medical; Visit Provider Internal Medicine Hematology & Oncology
DX: C34.90 Malignant neoplasm of unspecified part of unspecified bronchus or lung (principal)
CPT/HCPCS: 36415; 80047; 80053; 85025

== ENCOUNTER 2024-07-13 01:38 | Day surgery (SDC) | payer MEDICARE, SELFPAY ==
[2024-06-27 14:16] VITALS: BMI 23.6
[2024-07-13 07:13] VITALS: BP 138/83; PULSE 78; RESP 18; TEMP 35.9; O2SAT 92; BMI 23.4
[2024-07-13] MEDS: LACTATED RINGERS 1,000 ML 150 ML IV CONT (07:33)
--- NOTE | 2024-07-13 07:52 | WPDANESEPPF ---
Anes - Initial Pre Proc Eval Procedure: Operation Date: 07/13/24 08:30 Proposed Procedures p Esophagogastroduodenoscopy - Sb Worthy MD Date/Time: 07/13/24 07:52 Surgeon: Sb Worthy MD Pre Op Diagnosis: Esophageal obstruction Patient Data Age: 79 Gender: M Height: 1.75 m Weight: 72.1 kg Last Vital Signs Temp 96.7 F L 07/13/24 07:13 Pulse 78 07/13/24 07:13 Resp 18 07/13/24 07:13 BP 138/83 07/13/24 07:13 Pulse Ox 92 07/13/24 07:13 O2 Del Method Room Air 07/13/24 07:13 Allergies Allergy/AdvReac Type Severity Reaction Status Date / Time No Known Allergies Allergy Verified 07/13/24 07:21 Home Medications Medication Instructions Recorded Confirmed Type potassium chloride 20 mEq 20 meq PO DAILY 03/29/20 07/13/24 History tablet,extended release metoprolol tartrate 25 mg tablet 25 mg PO BID 03/13/22 07/13/24 History lovastatin 40 mg tablet 20 mg PO DAILY 06/06/22 07/13/24 History pantoprazole 40 mg granules 40 mg PO DAILY 06/06/22 07/13/24 History delayed-release for susp in packet tiotropium 2.5 mcg-olodaterol 2.5 2 puff inhalation DAILY #4 grams 11/10/22 07/13/24 Rx mcg/actuation mist for inhalation albuterol sulfate 90 mcg/actuation 2 inh inhalation Q4H 01/21/23 07/13/24 History aerosol inhaler cholecalciferol (vitamin D3) 25 50 mcg PO DAILY 01/21/23 07/13/24 History mcg (1,000 unit) capsule aspirin 81 mg tablet,delayed 81 mg PO DAILY 01/22/23 07/13/24 History release (Adult Low Dose Aspirin) cyanocobalamin (vitamin B-12) 1,000 mcg PO DAILY 06/24/23 07/13/24 History 1,000 mcg capsule Patient hx anesthesia problems: none Family hx anesthesia problems: none Results Review: All pre-operative results and documents have been reviewed as part of the pre-operative evaluation. [facility] Past Medical History Medical History COPD (chronic obstructive pulmonary disease) Esophageal stricture resolved with radiation treatment from lung CA 2021 High blood pressure High cholesterol History of colon polyps Squamous cell lung cancer radiation 2021 Tobacco abuse quit 3 yrs ago 2019 Surgical History Surgical History H/O colonoscopy 05/2020 Dr. Thompson H/O endoscopy 04/09/23 H/O esophagogastroduodenoscopy Hx of cataract surgery PEG (percutaneous endoscopic gastrostomy) status Family History Family History Father Cancer Mother Hypertension Social History Social History Smoking packs per day: 2.5 Smoking cigarettes per day: 50.0 Years smoked: 65 Smoking pack-years: 162.50 Smoking status: Former smoker Tobacco type: cigarettes Second hand tobacco smoke exposure: No Smoking end date: 04/11/20 Alcohol intake: current Drinks per week: 14 Alcohol use details: 2 GLASSES WINE/NOC Substance use: never Substance use type: does not use Lack of Transportation: No Lack of Food: Never True Current Housing: I Have Housing Concerned About Future Housing: No Difficulty Paying Gas/Electric Bills: No Difficulty Paying for Meds: No Currently Unemployed: No Difficulty w/ Childcare or Family Care: No Living arrangements: with family Occupation/Education: retired Gender identity (if verbalized by the patient): Male Spiritual care concerns: No Agree to blood products: Yes Anes - Eval Final PreProcedure Day of Procedure 07/13/24 07:52 Patient weight: normal Heart: regular rate and rhythm Lungs: clear to auscultation Airway: Mallampati scale class II Neurological: alert and oriented Last oral intake: >/= 8 hours ASA classification: IV Emergent: no Anesthetic plan: proceed Anesthesia type and monitoring: general GIVS and standard monitoring Results Review:
--- NOTE | 2024-07-13 08:07 | PM.HPGS ---
History of Present Illness History of Present Illness Consent: Risks, benefits, and alternatives have been discussed and questions answered. Patient agrees to proceed with procedure. Chief complaint: Esophageal obstruction Narrative: Bryant Florian is a 79 year old male known to have a lung carcinoma. Initially diagnosed in October of 2021. Patient has been followed by Dr. Rodriguez and received XRT but then developed dysphagia and EGD noted esophageal stricture dilated in the past, he used to have PEG. He has issues eating solids and here for another EGD. Review of Systems Review of Systems: All systems reviewed & are unremarkable except as noted in HPI and below PMFSH Past Medical History Medical History COPD (chronic obstructive pulmonary disease) Esophageal stricture resolved with radiation treatment from lung CA 2021 High blood pressure High cholesterol History of colon polyps Squamous cell lung cancer radiation 2021 Tobacco abuse quit 3 yrs ago 2019 Surgical History Surgical History H/O colonoscopy 05/2020 Dr. Thompson H/O endoscopy 04/09/23 H/O esophagogastroduodenoscopy Hx of cataract surgery PEG (percutaneous endoscopic gastrostomy) status Family History Family History Father Cancer Mother Hypertension Social History Social History Smoking packs per day: 2.5 Smoking cigarettes per day: 50.0 Years smoked: 65 Smoking pack-years: 162.50 Smoking status: Former smoker Tobacco type: cigarettes Second hand tobacco smoke exposure: No Smoking end date: 04/11/20 Alcohol intake: current Drinks per week: 14 Alcohol use details: 2 GLASSES WINE/NOC Substance use: never Substance use type: does not use Lack of Transportation: No Lack of Food: Never True Current Housing: I Have Housing Concerned About Future Housing: No Difficulty Paying Gas/Electric Bills: No Difficulty Paying for Meds: No Currently Unemployed: No Difficulty w/ Childcare or Family Care: No Living arrangements: with family Occupation/Education: retired Gender identity (if verbalized by the patient): Male Spiritual care concerns: No Agree to blood products: Yes Meds Home Medications and Allergies Home Medications Medication Instructions Recorded Confirmed Type potassium chloride 20 mEq 20 meq PO DAILY 03/29/20 07/13/24 History tablet,extended release metoprolol tartrate 25 mg tablet 25 mg PO BID 03/13/22 07/13/24 History lovastatin 40 mg tablet 20 mg PO DAILY 06/06/22 07/13/24 History pantoprazole 40 mg granules 40 mg PO DAILY 06/06/22 07/13/24 History delayed-release for susp in packet tiotropium 2.5 mcg-olodaterol 2.5 2 puff inhalation DAILY #4 grams 11/10/22 07/13/24 Rx mcg/actuation mist for inhalation albuterol sulfate 90 mcg/actuation 2 inh inhalation Q4H 01/21/23 07/13/24 History aerosol inhaler cholecalciferol (vitamin D3) 25 50 mcg PO DAILY 01/21/23 07/13/24 History mcg (1,000 unit) capsule aspirin 81 mg tablet,delayed 81 mg PO DAILY 01/22/23 07/13/24 History release (Adult Low Dose Aspirin) cyanocobalamin (vitamin B-12) 1,000 mcg PO DAILY 06/24/23 07/13/24 History 1,000 mcg capsule Allergies Allergy/AdvReac Type Severity Reaction Status Date / Time No Known Allergies Allergy Verified 07/13/24 07:21 Vital Signs Vital Signs - 24 hr 07/13/24 07:13 Temperature 96.7 F L Pulse Rate 78 Respiratory Rate 18 Blood Pressure 138/83 Pulse Oximetry 92 Oxygen Delivery Room Air Exam Const: General: comfortable and no acute distress HENMT: Face/Nose/Sinus: Normal nares present Eyes: General: appearance normal, both eyes and all related structures Neck: Neck: no JVD Resp: Auscultation: clear to auscultation bilat
[2024-07-13] MEDS: BENZOCAINE (*SP) 60 ML SPRAY CAN (HURRICAINE) 1 SPRAY MUCOUS MEM (08:12)
[2024-07-13 08:27] VITALS: BP 102/64; PULSE 68; RESP 18; O2SAT 100
[2024-07-13 08:37] VITALS: BP 109/67; PULSE 67; RESP 16; O2SAT 100
[2024-07-13 08:47] VITALS: BP 132/74; PULSE 61; RESP 16; O2SAT 100
== END 2024-07-13 09:03 | disposition home or self-care (01) ==
PROVIDERS: PCP Physician Assistant Medical; Referring Provider Internal Medicine Hematology & Oncology; Visit Provider Internal Medicine Gastroenterology
PROC: 0DJ08ZZ Inspection of Upper Intestinal Tract, Via Natural or Artificial Opening Endoscopic (ICD-10-PCS; CPT 43235; principal; 2024-07-13 08:30)
DX: K22.2 Esophageal obstruction (principal); K22.10 Ulcer of esophagus without bleeding; K31.84 Gastroparesis; J44.9 Chronic obstructive pulmonary disease, unspecified; I10 Essential (primary) hypertension; E78.00 Pure hypercholesterolemia, unspecified; Z79.51 Long term (current) use of inhaled steroids; Z79.82 Long term (current) use of aspirin; Z98.890 Other specified postprocedural states; Z93.1 Gastrostomy status; Z87.891 Personal history of nicotine dependence; Z86.010 Personal history of colon polyps; Z92.3 Personal history of irradiation; Z85.118 Personal history of other malignant neoplasm of bronchus and lung; Z80.9 Family history of malignant neoplasm, unspecified
CPT/HCPCS: 43249; 88305; C1726; J2704; J7120

== ENCOUNTER 2024-10-18 08:14 | Outpatient (CLI) | payer MEDICARE, SELFPAY ==
--- NOTE | ~2024-10-18 | CT_ITS ---
EXAMINATION:CT diagnostic chest w con DATE: 10/18/2024 08:38 INDICATION: Malignant neoplasm of lung. TECHNIQUE: Computed tomography (CT) of the chest was performed with 75 mL Omnipaque 350 intravenous c ontrast. Automated exposure control and iterative reconstruction technique were employed. The dose-le ngth product (DLP) was 186.55 mGy-cm. COMPARISON: Chest CT 06/10/2024, 10/07/23, 06/02/23, 01/28/24 FINDINGS: There is severe emphysema. There are small bilateral posterior diaphragmatic hernias contai korin fat. There is a 1.6 cm nodule in right lower lobe, stable from 01/28/24 and improved from 06/02/23, likely radiation pneumonitis. There is mild atelectasis bilaterally. A calcified left lung nodule an d calcified left hilar and mediastinal lymph nodes are consistent with old granulomatous disease. The re is ill-defined soft tissue attenuation in the subcarinal region with wall thickening of the adjace nt esophagus. No pleural effusion. The heart size is normal. There are coronary artery calcifications . No pericardial effusion. Calcifications in the liver consistent with old granulomatous disease. The re are cysts in the kidneys measuring up to 4.0 cm on the right. There is moderate thoracic spondylos is. There is mild chronic anterior wedging of multiple vertebral bodies. IMPRESSION: 1. Stable infiltrative soft tissue in the subcarinal region with wall thickening of the adjacent esop hagus, consistent with malignancy and treatment changes. 2. Severe emphysema. Reviewed, dictated and finalized at location [facility]. ORATE DRIVER IMPRESSION: 1. Stable infiltrative soft tissue in the subcarinal region with wall thickenin g of the adjacent esophagus, consistent with malignancy and treatment changes. 2. Severe emphysema.
[2024-10-18 08:35] LABS: Estimated Glomerular Filt Rate > 60
== END 2024-10-18 08:15 | disposition home or self-care (01) ==
PROVIDERS: PCP Physician Assistant Medical; Visit Provider Internal Medicine Hematology & Oncology
DX: C34.90 Malignant neoplasm of unspecified part of unspecified bronchus or lung (principal); J43.9 Emphysema, unspecified
CPT/HCPCS: 71260; Q9967

== ENCOUNTER 2024-10-25 10:27 | Outpatient (CLI) | payer MEDICARE, SELFPAY ==
[2024-10-25 10:38] LABS: Basophils Percent Auto 0.8 % (0.2-1.2); Eosinophils Absolute Auto 0.2 K/mm3 (0-0.3); Eosinophils Percent Auto 4.5 % (0-4.4); Immature Granulocyte Absolute 0.02 K/mm3 (0.00-0.031); Immature Granulocyte Percent A 0.4 % (0-0.5); Lymphocytes Absolute Auto 0.92 K/mm3 (0.9-3.2); Lymphocytes Percent Auto 18.9 % (18.3-44.2); Mean Corpuscular HGB Conc 32.6 g/dl (32-36); Mean Corpuscular Hemoglobin 31.3 pg (26-34); Mean Platelet Volume 9.7 fl (7.4-10.4); Monocytes Absolute Auto 0.5 K/mm3 (0.1-0.6); Monocytes Percent Auto 9.3 % (2.6-8.5); Neutrophils Absolute Auto 3.2 K/mm3 (1.3-6.7); Neutrophils Percent Auto 66.1 % (45.5-73.1); Platelet Count Result 262 k/mm3 (150-375); Red Blood Count 4.48 M/mm3 (4.6-6.20); Red Cell Distribution Width 14.4 % (11.5-14.5); White Blood Count 4.9 K/mm3 (4.5-10.0)
[2024-10-25 10:44] LABS: Blood Urea Nitrogen 10 mg/dL (8-26); Carbon Dioxide 24 mmol/L (22-30); Chloride 103 mmol/L (98-109); Estimated Glomerular Filt Rate > 60; Glucose 104 mg/dL (70-105); Ionized Calcium (POC) 1.21 mmol/L (1.11-1.31); Potassium 3.8 mmol/L (3.5-4.9); Sodium 141 mmol/L (138-146)
[2024-10-25 13:01] LABS: Alanine Aminotransferase 15 U/L (6-50); Alkaline Phosphatase 58 U/L (38-126); Anion Gap 6 mmol/L (4-12); Aspartate Amino Transferase 28 U/L (17-59); Bilirubin,Total 1.1 mg/dL (0.2-1.3); Blood Urea Nitrogen 11 mg/dL (9-20); Calcium 8.9 mg/dL (8.4-10.2); Carbon Dioxide 26 mmol/L (22-30); Chloride 106 mmol/L (98-107); Estimated Glomerular Filt Rate > 60; Glucose 99 mg/dL (65-110); Potassium 3.9 mmol/L (3.4-5.0); Sodium 138 mmol/L (137-145)
== END 2024-10-25 10:28 | disposition home or self-care (01) ==
LOC: ANHLAB 10:28
PROVIDERS: PCP Physician Assistant Medical; Visit Provider Internal Medicine Hematology & Oncology
DX: C34.90 Malignant neoplasm of unspecified part of unspecified bronchus or lung (principal)
CPT/HCPCS: 36415; 80047; 80053; 85025

== ENCOUNTER 2024-11-01 11:51 | Outpatient (CLI) | payer MEDICARE, SELFPAY ==
--- NOTE | ~2024-11-01 | PE_ITS ---
EXAMINATION: PET skull to mid thigh DATE: 11/01/2024 14:01 INDICATION: Malignant neoplasm of the lung TECHNIQUE: Blood glucose level was 92 mg/dL. 10.095 mCi of 18-fluorodeoxyglucose (18-FDG) was adminis tered i.v. Low dose computed tomography (CT) images were acquired from the base of the brain to the p roximal thighs for attenuation correction and anatomic localization. Positron emission tomography (PE T) images were acquired in the same distribution beginning 51 minutes after injection. Images includi ng fused PET/CT images were reconstructed in axial, coronal, and sagittal planes. Automated exposure control technique was employed. The dose-length product was 848.71mGy-cm. COMPARISON: Chest CT dated 10/18/2024, 10/07/2023 and PET/CT dated 12/19/2021 FINDINGS: Head/neck: There is symmetric increased activity in the oral cavity, palatine and lingual tonsils, laryngeal mus cles and ocular muscles without CT correlate, likely physiologic. No pathologically enlarged cervical lymphadenopathy or suspicious foci of increased FDG uptake in the visualized head or neck. Chest: Moderate paraseptal predominant emphysema. There is dependent atelectasis in the bilateral lower lobe s. There are couple calcified nodules in the superior segment of the left lower lobe along with calci fied left hilar and mediastinal lymph nodes consistent with old granulomatous disease. No significant interval change in a 14 x 11 mm nodule in the superior segment of the right lower lobe with mild ass ociated FDG uptake with maximal SUV of 3.9. The nodule is decreased in size from 1.9 x [address] d ated 10/07/2023. Heart size is normal. Atherosclerotic coronary artery calcifications. No pericardial effusion. Persistent mild esophageal wall thickening just below level of the farhan with mild FDG up take with maximal SUV of 3.8. The wall thickening has improved since 06/10/2024 related to radiation t reatment. No pathologically enlarged or abnormally FDG avid thoracic lymphadenopathy. Thoracic aorta is normal in caliber. Abdomen/pelvis/proximal thighs: Physiologic renal accumulation and excretion of FDG activity in the kidneys, bladder and along portio ns of ureters. There is diffuse bladder wall thickening. Photopenic defects associated with bilateral renal cysts the larger on the right measuring 3.9 cm in maximal diameter. Unchanged likely benign 1. 3 cm rim calcified lesion without evident FDG uptake at the lower pole the right kidney. Normal degre e and heterogenous pattern of increased uptake throughout the liver without radiologic correlate or d ominant FDG avid lesion. A few tiny calcifications at the posterior dome of liver consistent with old granulomatous disease. The gallbladder, pancreas, spleen and bilateral adrenal glands are normal. Mi ld uptake scattered throughout the bowels without radiologic correlate, also likely physiologic. Mode rate sigmoid diverticulosis with segment of chronic wall thickening at the mid sigmoid colon acoustic al chronic diverticulitis. Normal appendix. Prostatomegaly. Small fat-containing left inguinal hernia . No other abnormal foci of increased FDG uptake or pathologically enlarged lymphadenopathy in the ab domen, pelvis or proximal thighs. Musculoskeletal: Chronic T6 compression fracture and chronic Schmorl's of the lower thoracic spine. Severe spondylosis in the cervical, lumbar and lower thoracic spine. No suspicious lytic, blastic or abnormally FDG rubi d bone lesions. IMPRESSION: 1. Moderate emphysema and mild FDG uptake associated with a 1.4 x 1.1 cm right lower lobe nodule whic h has decreased in size since 10/07/2023 with differential including treated malignancy, sequela of c hronic infection or scarring/radiation fibrosis. While the decrease in size is reassuring would recom mend continued CT follow-up. 2. Mild FDG uptake and decreasing mild wall thickening at the mid esophagus likely related to respons e to radiation treatment. 3. No other and abnormal masses, lymphadenopathy or FDG avid lesions suspicious for metastatic diseas e in the neck, abdomen or pelvis. Reviewed, dictated and finalized at location [facility]. NG CAN WORKER IMPRESSION: 1. Moderate emphysema and mild FDG uptake associated with a 1.4 x 1.1 cm right lower lobe nodule which has decreased in size since 10/07/2023 with differentia l including treated malignancy, sequela of chronic infection or scarring/radiat ion fibrosis. While the decrease in size is reassuring would recommend continue d CT follow-up. 2. Mild FDG uptake and decreasing mild wall thickening at the mid esophagus lik carol ann related to response to radiation treatment. 3. No other and abnormal masses, lymphadenopathy or FDG avid lesions suspicious for metastatic disease in the neck, abdomen or pelvis.
[2024-11-01 12:34] LABS: Glucose Point of Care 92 mg/dl (65-105)
== END 2024-11-01 11:52 | disposition home or self-care (01) ==
PROVIDERS: PCP Physician Assistant Medical; Visit Provider Internal Medicine Hematology & Oncology
DX: C34.31 Malignant neoplasm of lower lobe, right bronchus or lung (principal); J43.9 Emphysema, unspecified
CPT/HCPCS: 78815; A9552

== ENCOUNTER 2025-03-06 07:54 | Outpatient (CLI) | payer MEDICARE, SELFPAY ==
--- NOTE | ~2025-03-06 | CT_ITS ---
Clinical Indication: Lung cancer CT Scan of the Chest with Contrast: Technique: Contiguous sections were acquired throughout the chest after intravenous administration of 75 cc of Omnipaque 350. Dose reduction technique was used on this scan by utilizing automated exposu re control and iterative reconstruction technique. The dose-length product (DLP) was 205.72 mGy-cm. COMPARISON: 10/18/2024 Findings: There is no evidence of any significant mediastinal, hilar or axillary lymphadenopathy. There is no f illing defect in the pulmonary arterial tree to suggest pulmonary embolus. There is no evidence of ao rtic dissection or aneurysm. Stable circumferential wall thickening of the mid and distal esophagus. There is no evidence of pleural or pericardial effusion. Severe emphysema present. Stable irregular nodule in the right lower lobe measuring 1.5 cm in diamete r, which could reflect treated disease. Stable 3 mm left lower lobe pulmonary nodule. Chronic scarrin g and atelectasis in the medial right middle lobe is unchanged. Images through the upper abdomen reveal no abnormalities. Stable T6 compression deformity. Stable deg enerative changes thoracolumbar spine. Impression: No change from prior exam. Stable irregular 1.5 cm right lower lobe pulmonary nodule, which could ref lect treated disease. Severe emphysema. Stable scarring/atelectasis medial right middle lobe. Stable T6 compression fracture. Stable wall thickening of the mid and distal esophagus. Correlate for esophagitis. Reviewed, dictated and finalized at [facility]. Impression: No change from prior exam. Stable irregular 1.5 cm right lower lobe pulmonary n odule, which could reflect treated disease. Severe emphysema. Stable scarring/atelectasis medial right middle lobe. Stable T6 compression fracture. Stable wall thickening of the mid and distal esophagus. Correlate for esophagit is.
[2025-03-06 08:13] LABS: Estimated Glomerular Filt Rate 59
== END 2025-03-06 07:55 | disposition home or self-care (01) ==
PROVIDERS: PCP Physician Assistant Medical; Visit Provider Internal Medicine Hematology & Oncology
DX: C34.90 Malignant neoplasm of unspecified part of unspecified bronchus or lung (principal); J43.9 Emphysema, unspecified; S22.050D Wedge compression fracture of T5-T6 vertebra, subsequent encounter for fracture with routine healing; X58.XXXD Exposure to other specified factors, subsequent encounter
CPT/HCPCS: 71260; Q9967

== ENCOUNTER 2025-03-30 13:43 | Outpatient (CLI) | payer MEDICARE, SELFPAY ==
--- OUTSIDE RECORDS SUMMARY | 2025-03-30 13:46 | XMS_ITS | Clinical Summary ---
Author Organization [facility] Address [address] [place] [address] Care Team Providers Care Sand Shoveler Name Role Phone Delano Fernández MD Primary Care Provider [phone] Allergies No known active allergies Medications potassium chloride CR (KLOR-CON M) 20 MEQ tablet Take 1 tablet (20 mEq total) by mouth daily. Active pantoprazole EC (PROTONIX) 40 MG tablet Take 1 tablet (40 mg total) by mouth daily. Active lovastatin (MEVACOR) 20 MG tablet Take 1 tablet (20 mg total) by mouth daily with supper. Active metoprolol tartrate (LOPRESSOR) 25 MG tablet Take by mouth 2 (two) times daily. Active Cyanocobalamin (VITAMIN B 12) 500 MCG Tab Take 1,000 mg by mouth daily. Active aspirin EC (ECOTRIN) 81 MG tablet Take 1 tablet (81 mg total) by mouth daily. Active tiotropium bromide-olodater ol (STIOLTO RESPIMAT) 2.5-2.5 MCG/ACT inhaler Inhale 2 puffs into the lungs daily. Active vitamin D3 (CHOLECALCIFEROL ) 75 mcg Tab tablet Take 25 mcg by mouth daily. Active OXYGEN by Nasal route continuous. Active Active Problems No known active problems Social History Tobacco Use Types Packs/Day Years Used Date Smoking Tobacco: Former Cigarettes Smokeless Tobacco: Never Tobacco Cessation:Counseling Given: Not Answered Alcohol Use Standard Drinks/Week Comments Yes 0 (1 standard drink = 0.6 oz pur e alcohol) 2 glasses of wine every night Sex and Gender Information Value Date Recorded Sex Assigned at Not on file Legal Sex Male 8:28 PM CDT Gender Identity Not on file Sexual Orientation Not on file Last Filed Vital Signs Vital Sign Reading Time Taken Comments Blood Pressure 132/95 06/15/2023 9:07 AM CDT Pulse 78 06/15/2023 9:07 AM CDT Temperature 36.6 C (97.9 F) 06/15/2023 7:36 AM CDT Respiratory Rate - - Oxygen Saturation 91% 06/15/2023 9:07 AM CDT Inhaled Oxygen Concentration - - Weight 73.9 kg (163 lb) 07/10/2023 1:39 PM CDT Height 175.3 cm (5' 9 ) 07/10/2023 1:39 PM CDT Body Mass Index 24.07 07/10/2023 1:39 PM CDT Plan of Treatment Health Maintenance Due Date Last Done Comments Hepatitis C 1963 Annual Medicare Wellness Visit 2011 DTaP, Tdap and Td Vaccines (2 - Td or Tdap) 11/23/2019 11/23/2009, 05/04/2003 RSV Immunization or 60+ Years (1 - 1-dose 75+ series) 2021 COVID-19 Vaccine ( season) 2024 09/09/2022, 09/19/2021, 01/23/2021, Additional history exists Pneumococcal Vaccine: 50+ Years Completed 03/04/2016, 03/19/2015, 02/23/2015 Zoster Vaccines Completed 09/29/2018, 0502/2018, 09/05/2009, Additional history exists Meningococcal B Vaccine Aged Out No l onger eligible based on patient's age to complete this topic Meningococcal Vaccine Aged Out No salima fernando eligible based on patient's age to complete this topic RSV Immunizations Under 20 Months Aged Out No longer eligible based on patient's age to complete this topic Medical Devices Implanted Type Area Hog Scalder Device Identifier Shelf Expiration Date Model / Serial / Lot Iol [employer] Simplicity Dcb00 - [id number] Implanted:Qty: 1 on 07/20/2023 by Lalo Galindo MD at [facility] Lens Left: Lens [employer] 03/02/2026 DCB00 / [id number] / [employer]ecnis 1 Piece Iol Implanted:Qty: 1 on 06/15/2023 by Lalo Galindo MD at [facility] Right: Eye 03/02/2026 / [id number] / Insurance [employer] Care Teams Sand Shoveler Relationship Specialty Start Date End Date Delano Feránndez MD [address] [place] [id number] PCP - General FAMILY PRACTICE 06/15/23
--- OUTSIDE RECORDS SUMMARY | 2025-03-30 13:46 | XMS_ITS | Encounter Summary ---
Author Organization [facility] Address 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 Oncology and Hematology - [place] [address] [place] [address] [facility] 200 [place] [address] Sukhdev Rodriguez MD [address] [facility] [address] [place] [address] documented as of this encounter Visit Diagnoses Not on filedocumented in this encounter Care Teams Pattern Hanger Relationship Specialty Start Date End Date Delano Fernández MD [address] [place] [phone] PCP - General Family Practice 03/16/23 10/24/24 documented as of this encounter
--- OUTSIDE RECORDS SUMMARY | 2025-03-30 13:46 | XMS_ITS | Encounter Summary ---
Author Organization [facility] Address [address] [place] [address] Care Team Providers Care Bullet Slug Casting Machine Operator Name Role Phone Delano Fernández MD Primary Care Provider +1 [phone] Encounter Details Date Type Department Care Team (Late st Contact Info) Description 12/15/2000 Outpatient Historical [facility] Yoni Soto MD Social History Tobacco Use Types Packs/Day Years Used Date Smoking Tobacco: Never Assessed Sex and Gender Information Value Date Recorded Sex Assigned at Not on file Legal Sex Male 4:23 AM HEAD OF TALENT MANAGEMENT Gender Identity Not on file Sexual Orientation Not on file documented as of this encounter Plan of Treatment Upcoming Encounters Date Type Department Care Team (Late st Contact Info) Description 03/30/2025 2:30 PM CDT Office Visit [facility] Oncology and Hematology - [place] [address] [place] [address] [facility] 200 [place] [address] Sukhdev Rodriguez MD [address] [facility] [address] [place] [address] documented as of this encounter Visit Diagnoses Not on filedocumented in this encounter Care Teams Bullet Slug Casting Machine Operator Relationship Specialty Start Date End Date Delano Fernández MD [address] [place] [phone] PCP - General Family Practice 03/16/23 10/24/24 documented as of this encounter
--- OUTSIDE RECORDS SUMMARY | 2025-03-30 13:46 | XMS_ITS | Clinical Summary ---
Author Organization [facility] Address [address] [place] [address] Phone Care Team Providers Care Soldering Inspector Name Role Phone Unavailable Primary Care Provider Unavailabl e Allergies No known active allergies Medications SILDENAFIL CITRATE (SILDENAFIL ORAL) Take 100 mg by mouth Take as needed.. Active potassium chloride (K-DUR) 20 mEq Extended Release tablet Take 20 mEq by mouth daily. Active pantoprazole (PROTONIX) 40 mg Tablet, Delayed Release (E.C.) Take 40 mg by mouth daily. Active lovastatin (MEVACOR) 20 mg tablet Take 20 mg by mouth daily. Active ketoconazole (NIZORAL) 2 % Cream ED BID TO FEET AND LEFT HAND FOR 4 WEEKS 3 7 Active metoprolol tartrate (LOPRESSOR) 25 mg tablet Take 25 mg by mouth 2 times daily. Active albuterol sulfate 90 mcg/Actuation inhaler INHALE 2 PUFFS BY ORAL INHALATION FOUR TIMES A DAY NEEDED FOR BREATHING. SHAKE WELL. RINSE MOUTHPIECE FREQUENTLY TO PREVENT CLOGGING. 1 Active tiotropium (SPIRIVA RESPIMAT) 2.5 mcg/actuation Mist INHALE 2 INHALATIONS BY ORAL INHALATION ONCE A DAY (ADMINISTER AT SAME TIME EACH DAY) FOR BREATHING. 1 Active cyanocobalamin 1,000 mcg Tablet Take 1,000 mcg by mouth daily. Active lidocaine-pril ocaine (EMLA) 2.5-2.5 % Cream Apply to affected area see administration instructions. 30 Gram 1 2 Active ondansetron (ZOFRAN ODT) 8 mg Tablet, Rapid Dissolve Dissolve 1 tablet on top of tongue then swallow with saliva every 8 hours as needed for nausea or vomiting 30 Tablet 1 2 Active aspirin 81 mg tablet,delayed release Take 81 mg by mouth daily. Active cholecalcifero l (vitamin D3) 25 mcg (1,000 unit) capsule Take by mouth daily. Active losartan (COZAAR) 100 mg tablet Take 50 mg by mouth daily. 4 Active Active Problems Problem Noted Date Diagnosed Date Moderate protein-calorie malnutrition 01/28/2022 Non-small cell lung cancer 12/12/2021 Tobacco use 03/19/2017 Hyperlipidemia 03/19/2017 Gastroesophageal reflux disease without esophagi tis 03/19/2017 HTN (hypertension), benign 03/19/2017 Pulmonary emphysema 03/19/2017 Personal history of colonic polyps; last colonos copy 201403/19/2017 Mediastinal mass Esophageal dysphagia Encounters Date Type Department Care Team Description 03/07/2025 External Device Data STL ABSTRACTION Provider, Abstract 03/06/2025 Orders Only [facility] Oncology and Hematology - [place] [address] [facility] [address] [place] [address] Sukhdev Rodriguez MD 02/08/2025 External Device Data STL ABSTRACTION Provider, Abstract from Last 3 Months Immunizations Immunization Administration Dates Next Due (PREVNAR 13)(6 WKS UP) PNEUM OCOCCAL CONJUGATE (PCV13) 0.5 ML, IM 02/23/2015 (SPIKEVAX) (12 YRS UP PRIMAR Y SERIES) COVID-19 VACCINE - [id number](PF) 100 MCG/0.5 ML IM SUSP 01/23/2021,12/26/2020 Influenza Seasonal Unspecified Formulation IM ,07/24/2016 Zoster Vaccine Live SQ 08/11/2007 Family History Medical History Relation Name Comments Prostate Cancer Father Other Other uncle - gout Celiac Disease Neg Hx Colon Cancer Neg Hx Crohn's Disease Neg Hx Inflammatory Bowel Disease Neg Hx Relation Name Status Comments Father Other Social History Tobacco Use Types Packs/Day Years Used Date Smoking Tobacco: Former Cigarettes Q uit: 04/11/2020 Smokeless Tobacco: Never Tobacco Cessation:Counseling Given: Not Answered Alcohol Use Standard Drinks/Week Comments Yes 0 (1 standard drink = 0.6 oz pur e alcohol) daily wine 2 glasses at hs Feeling Safe Answer Date Recorded Are you in a relationship wi th someone who hurts you emotionally and/or physically? No 04/07/2023 Sex and Gender Information Value Date Recorded Sex Assigned at Not on file Legal Sex Male 4:23 AM CONSTRUCTION EXECUTIVE Gender Identity Not on file Sexual Orientation Not on file Last Filed Vital Signs Vital Sign Reading Time Taken Comments Blood Pressure 139/85 10/25/2024 10:45 AM CONSTRUCTION EXECUTIVE Pulse 67 10/25/2024 10:41 AM CONSTRUCTION EXECUTIVE Temperature 36.5 C (97.7 F) 10/25/2024 10:41 AM CONSTRUCTION EXECUTIVE Respiratory Rate 16 10/25/2024 10:41 AM CONSTRUCTION EXECUTIVE Oxygen Saturation 90% 10/25/2024 10:41 AM CONSTRUCTION EXECUTIVE Inhaled Oxygen Concentration - - Weight 73.7 kg (162 lb 6.4 oz) 10/25/2024 10:41 AM CONSTRUCTION EXECUTIVE Height 175.3 cm (5' 9 ) 04/07/2023 11:16 AM CDT Body Mass Index 23.98 04/07/2023 11:16 AM CDT Plan of Treatment Upcoming Encounters Date Type Department Care Team (Late st Contact Info) Description 03/30/2025 2:30 PM CDT Office Visit [facility] Oncology and Hematology - [place] [address] [place] [address] [facility] 200 [place] [address] Sukhdev Rodriguez MD [address] [facility] [address] [place] [address] Health Maintenance Due Date Last Done Comments DTAP/TDAP/TD VACCINES (2 - T d or Tdap) 11/23/2019 11/23/2009, 05/04/2003 RSV VACCINE (60+ or ) (1 - 1-dose 75+ series) 2021 INFLUENZA VACCINE (#1) 2024 , 09/08/2017, 08/25/2017, Additional history exists COVID-19 Vaccine (2023-2 5 season) 2025 07/24/2024, 08/27/2023, 09/09/2022, Additional history exists FIT/FOBT Q 1 year Discontinued 12/15/2000 PNEUMOCOCCAL VACCINE 50+ YEARS Completed 0 03/04/2016, 03/19/2015, 02/23/2015, Additional history exists ZOSTER VACCINE Completed 09/29/2018, 05/0 02/2018, 09/05/2009, Additional history exists COLORECTAL SCREENING Discontinued 05/24/2020, 09/05/2015, 06/29/2007, Additional history exists Colorectal Cancer Screening Discontinued FIT-DNA Q 3 years Discontinued Flex Sig/CT Colonography Q 5 years Discontinued Medical Devices Implanted Type Area Creative Arts Therapist Device Identifier Shelf Expiration Date Model / Serial / Lot Peg Endovive Std 20fr [id number] - [id number] Implanted:Qt y: 1 on 01/27/2022 by Mukesh Santos MD at [facility] Feeding Device [employer] COLLEEN [id number] 09/08/2022 [id number] / / [id number] Port Powerport Mri 8fr [id number] - [id number] Implanted:Qt y: 1 on 01/27/2022 by Christofer Echols MD at [facility] Port N/A: Chest [employer] [id number] 05/22/2023 [id number] / / [id number] Procedures Procedure Name Priority Date/Time Associated Diagnosis Comments CT CHEST W CONTRAST Routine 03/06/2025 1 0:04 AM CDT ENDOSCOPY, COLON, DIAGNOSTIC Routine 06/29/2007 from Last 3 Months or Most Recently Relevant to Health Maintenance Results * CT CHEST W CONTRAST (03/06/2025 10:04 AM CDT) Anatomical Region Laterality Modality Chest Computed Tomogra phy us Sukhdev Rodriguez MD CT ORDERABLES Final Result * (ABNORMAL) ENDOSCOPY, COLON, DIAGNOSTIC (06/29/2007) us Mukesh May MD GI PROCEDURE ORDERABLES Edited [facility] from Last 3 Months or Most Recently Relevant to Health Maintenance Insurance MEDICARE PART A AND B [facility] MEDICARE SUPP AESSI MEDICARE PART A AND B [facility] MEDICARE SUPP AESSI Advance Directives For more information, please contact: [phone] Documents on File Type Date Recorded Patient Humidifier Maintenance Worker Expl anation Advance Directive POA 09/18/2017 9:30 AM Advance Directive POA Advance Directive Living Will 09/18/2017 9:29 AM Advance Directive Living Will * Full Code (Latest Code Status on File) Date Activated Date Inactivated Comments 04/07/2023 11:20 AM 04/07/2023 3:30 PM * Full Code Date Activated Date Inactivated Comments 07/17/2022 10:56 AM 07/17/2022 2:59 PM * Full Code Date Activated Date Inactivated Comments 01/27/2022 4:44 PM 01/28/2022 6:28 PM * Full Code Date Activated Date Inactivated Comments 01/27/2022 2:04 PM 01/27/2022 4:43 PM * Full Code Date Activated Date Inactivated Comments 01/27/2022 9:53 AM 01/27/2022 2:04 PM
[2025-03-30 13:56] LABS: Basophils Percent Auto 0.6 % (0.2-1.2); Eosinophils Absolute Auto 0.2 K/mm3 (0-0.3); Eosinophils Percent Auto 3.2 % (0-4.4); Hematocrit 41.8 % (42.0-52.0); Hemoglobin 13.8 g/dL (14.0-18.0); Immature Granulocyte Absolute 0.03 K/mm3 (0.00-0.031); Immature Granulocyte Percent A 0.4 % (0-0.5); Lymphocytes Absolute Auto 0.92 K/mm3 (0.9-3.2); Lymphocytes Percent Auto 13.5 % (18.3-44.2); Mean Corpuscular Hemoglobin 31.8 pg (26-34); Mean Corpuscular Volume 96.3 fl (80-100); Mean Platelet Volume 9.8 fl (7.4-10.4); Monocytes Absolute Auto 0.6 K/mm3 (0.1-0.6); Monocytes Percent Auto 9.4 % (2.6-8.5); Neutrophils Percent Auto 72.9 % (45.5-73.1); Platelet Count Result 277 k/mm3 (150-375); Red Blood Count 4.34 M/mm3 (4.6-6.20); White Blood Count 6.8 K/mm3 (4.5-10.0)
[2025-03-30 13:59] LABS: Blood Urea Nitrogen 13 mg/dL (8-26); Carbon Dioxide 24 mmol/L (22-30); Chloride 102 mmol/L (98-109); Estimated Glomerular Filt Rate > 60; Glucose 87 mg/dL (70-105); Ionized Calcium (POC) 1.15 mmol/L (1.11-1.31); Potassium 3.9 mmol/L (3.5-4.9); Sodium 141 mmol/L (138-146)
[2025-03-30 17:30] LABS: Alanine Aminotransferase 18 U/L (6-50); Albumin Level 4.1 g/dL (3.5-5.1); Alkaline Phosphatase 61 U/L (38-126); Anion Gap 8 mmol/L (4-12); Aspartate Amino Transferase 52 U/L (17-59); Bilirubin,Total 1.2 mg/dL (0.2-1.3); Blood Urea Nitrogen 13 mg/dL (9-20); Carbon Dioxide 26 mmol/L (22-30); Chloride 105 mmol/L (98-107); Estimated Glomerular Filt Rate > 60; Glucose 82 mg/dL (65-110); Sodium 139 mmol/L (137-145)
== END 2025-03-30 13:44 | disposition home or self-care (01) ==
PROVIDERS: PCP Physician Assistant Medical; Visit Provider Internal Medicine Hematology & Oncology
DX: C34.90 Malignant neoplasm of unspecified part of unspecified bronchus or lung (principal)
CPT/HCPCS: 36415; 80047; 80053; 85025

== ENCOUNTER 2025-09-27 10:48 | Outpatient (CLI) | payer MEDICARE, SELFPAY ==
--- NOTE | ~2025-09-27 | CT_ITS ---
CT diagnostic chest w con HISTORY:Mal hai of lung COMPARISON: 03/06/2025. TECHNIQUE: Axial images of the chest were obtained without infusion of intravenous contrast. Dose optimization technique was utilized. FINDINGS: The examination demonstrates stable 1.2 x 0.9 cm nodule within the right lower lobe. 3 mm pulmonary nodule within the left lower lobe is stable. There are diffuse centrilobular and paraseptal emphysema. No new pulmonary nodule or acute infiltrate. Cardiac size and mediastinal configuration are normal in appearance. No hilar or mediastinal lymphadenopathy is seen. The thoracic aorta is normal in caliber. Stable compression fracture of T6. Partially included upper abdomen demonstrates hepatic steatosis. Bilateral renal cysts are noted. IMPRESSION: No acute cardiopulmonary process. Pulmonary nodules within the lower lobes are stable. No new pulmonary nodules seen. Severe centrilobular emphysema. All CT scans at this facility are performed using low dose modulation techniques as appropriate to perform exam including the following: automated exposure control; use of iterative reconstruction technique; adjustment of the mA and/or kV according to patient size (this includes techniques or standardized protocols for targeted exams where dose is matched to indication/reason for exam). Reviewed, dictated and finalized at location S. RVISOR ELEMENTARY EDUCATION IMPRESSION: No acute cardiopulmonary process. Pulmonary nodules within the lower lobes are stable. No new pulmonary nodules s een. Severe centrilobular emphysema. All CT scans at this facility are performed using low dose modulation techniqu es as appropriate to perform exam including the following: automated exposure c ontrol; use of iterative reconstruction technique; adjustment of the mA and/or kV according to patient size (this includes techniques or standardized protocol s for targeted exams where dose is matched to indication/reason for exam).
[2025-09-27 11:10] LABS: Estimated Glomerular Filt Rate 58
--- OUTSIDE RECORDS SUMMARY | 2025-09-28 10:26 | XMS_ITS | Clinical Summary ---
Author Organization [facility] Address [address] [place] [address] Phone Care Team Providers Care Third Helper Name Role Phone Unavailable Primary Care Provider [...] Encounters Date Type Department Care Team Description 09/13/2025 External Device Data STL ABSTRACTION Provider, Abstract 07/18/2025 External Device Data STL ABSTRACTION Provider, Abstract [...] on file Legal Sex Male 4:23 AM MIXER DIAMOND POWDER Gender Identity Not on file Sexual Orientation Not on file Last Filed Vital Signs Vital Sign Reading Time Taken Comments Blood Pressure 153/90 03/30/2025 2:18 PM CDT Pulse 75 03/30/2025 2:13 PM CDT Temperature 36.6 C (97.9 F) 03/30/2025 2:13 PM CDT Respiratory Rate 15 03/30/2025 2:13 PM CDT Oxygen Saturation 94% 03/30/2025 2:13 PM CDT Inhaled Oxygen Concentration - - Weight 73.5 kg (162 lb) 03/30/2025 2:13 PM CDT Height 175.3 cm (5' 9) 04/07/2023 11:16 AM CDT Body Mass Index 23.92 04/07/2023 11:16 AM CDT Plan of Treatment Upcoming Encounters Date Type Department Care Team (Late st Contact Info) Description 10/02/2025 11:45 AM MIXER DIAMOND POWDER Office Visit [facility] Oncology and Hematology - [place] [address] [place] [address] 200 [place] [address] Sukhdev Rodriguez MD [address] [facility] [address] [place] [address] Health Maintenance Due Date Last Done Comments DTAP/TDAP/TD VACCINES (2 - T d or Tdap) 11/23/2019 11/23/2009, 05/04/2003 RSV VACCINE (60+ or ) (1 - 1-dose 75+ series) 2021 INFLUENZA VACCINE (#1) 2025 2, 09/08/2017, 08/25/2017, Additional history exists COVID-19 Vaccine (2023-2 5 season) 2025 07/24/2024, 08/27/2023, 09/09/2022, Additional history exists FIT/FOBT Q 1 year Discontinued 12/15/2000 PNEUMOCOCCAL VACCINE 50+ YEARS Completed 0 03/04/2016, 03/19/2015, 02/23/2015, Additional history exists ZOSTER VACCINE Completed 09/29/2018, 050 02/2018, 09/05/2009, Additional history exists COLORECTAL SCREENING Discontinued 05/24/2020, 09/05/2015, 06/29/2007, Additional history exists Colorectal Cancer Screening Discontinued FIT-DNA Q 3 years Discontinued Flex Sig/CT Colonography Q 5 years Discontinued Medical Devices Implanted Type Area Ob Tech Device Identifier Shelf Expiration Date Model / Serial / Lot Peg Endovive Std 20fr [id number] - [id number] Implanted:Qt y: 1 on 01/27/2022 by Mukesh Santos MD at [facility] Feeding Device [employer] COLLEEN [id number] 09/08/2022 [id number] / / [id number] Port Powerport Mri 8fr [id number] - [id number] Implanted:Qt y: 1 on 01/27/2022 by Christofer Echols MD at [facility] Port N/A: Chest CR [employer]ARD[employer] [id number] 05/22/2023 [id number] / / [id number] Procedures Procedure Name Priority Date/Time Associated Diagnosis Comments ENDOSCOPY, COLON, DIAGNOSTIC Routine 06/29/2007 from Last 3 Months or Most Recently Relevant to Health Maintenance Results * (ABNORMAL) ENDOSCOPY, COLON, DIAGNOSTIC (06/29/2007) Mukesh May MD GI PROCEDURE ORDERABLES Edited [facility] from Last 3 Months or Most Recently Relevant to Health Maintenance Insurance MEDICARE PART A AND B [employer] MEDICARE SUPP AESSI MEDICARE PART A AND B [employer] MEDICARE SUPP AESSI Advance Directives For more information, please contact: [phone] Documents on File Type Date Recorded Patient Fisher Eel Spear Expl anation Advance Directive POA 09/18/2017 9:30 [...]
--- OUTSIDE RECORDS SUMMARY | 2025-09-28 10:26 | XMS_ITS | Encounter Summary ---
Author Organization [facility] Address [address] [place] [address] Care Team Providers Care Senior Formulation Scientist Name Role Phone Delano Fernández MD Primary Care Provider [phone] [phone] Encounter Details Date Type Department Care Team (Late st Contact Info) Description 05/29/1999 Outpatient Historical [facility] Yoni Soto MD Social History Tobacco Use Types Packs/Day Years Used Date Smoking Tobacco: Never Assessed Sex and Gender Information Value Date Recorded Sex Assigned at Not on file Legal Sex Male 4:23 AM TAPE FASTENER MACHINE OPERATOR Gender Identity Not on file Sexual Orientation Not on file documented as of this encounter Plan of Treatment Upcoming Encounters Date Type Department Care Team (Late st Contact Info) Description 10/02/2025 11:45 AM TAPE FASTENER MACHINE OPERATOR Office Visit [facility] Oncology and Hematology - [place] [address] [place] [address] [address] [place] [address] Sukhdev Rodriguez MD [address] [facility] [address] [place] [address] documented as of this encounter Visit Diagnoses Not on filedocumented in this encounter Care Teams Senior Formulation Scientist Relationship Specialty Start Date End Date Delano Fernández MD [address] [place] [phone] PCP - General Family Practice 03/16/23 10/24/24 documented as of this encounter
--- OUTSIDE RECORDS SUMMARY | 2025-09-28 10:26 | XMS_ITS | Encounter Summary ---
Author Organization [facility] Address [address] [place] [address] Care Team Providers Care Guest Relation Officer Name Role Phone Delano Fernández MD Primary Care Provider +1 [phone] Encounter Details Date Type Department Care Team (Late st Contact Info) Description 12/15/2000 Outpatient Historical [facility] Yoni Soto MD Social History Tobacco Use Types Packs/Day Years Used Date Smoking Tobacco: Never Assessed Sex and Gender Information Value Date Recorded Sex Assigned at Not on file Legal Sex Male 4:23 AM SWINGING CUT OFF SAW OPERATOR Gender Identity Not on file Sexual Orientation Not on file documented as of this encounter Plan of Treatment Upcoming Encounters Date Type Department Care Team (Late st Contact Info) Description 10/02/2025 11:45 AM SWINGING CUT OFF SAW OPERATOR Office Visit [facility] Oncology and Hematology - [place] [address] [place] [address] [address] [place] [address] Sukhdev Rodriguez MD [address] [facility] [address] [place] [address] documented as of this encounter Visit Diagnoses Not on filedocumented in this encounter Care Teams Guest Relation Officer Relationship Specialty Start Date End Date Delano Fernández MD [address] [place] [phone] PCP - General Family Practice 03/16/23 10/24/24 documented as of this encounter
== END 2025-09-27 10:49 | disposition home or self-care (01) ==
PROVIDERS: PCP Physician Assistant Medical; Visit Provider Internal Medicine Hematology & Oncology
DX: C34.90 Malignant neoplasm of unspecified part of unspecified bronchus or lung (principal); R91.8 Other nonspecific abnormal finding of lung field
CPT/HCPCS: 71260; Q9967

== ENCOUNTER 2025-10-02 11:04 | Outpatient (CLI) | payer MEDICARE, SELFPAY ==
[2025-10-02 11:15] LABS: Hematocrit 45.1 % (42.0-52.0); Hemoglobin 14.6 g/dL (14.0-18.0); Immature Granulocyte Percent A 0.4 % (0-0.5); Lymphocytes Absolute Auto 1.00 K/mm3 (0.9-3.2); Mean Corpuscular HGB Conc 32.4 g/dl (32-36); Mean Corpuscular Hemoglobin 31.7 pg (26-34); Mean Corpuscular Volume 98.0 fl (80-100); Nucleated Red Blood Cells Absolute Auto 0.000 K/mm3 (0.0-0.012); Nucleated Red Blood Cells Perc 0.0 % (0.0-0.2); Platelet Count Result 290 k/mm3 (150-375); Red Blood Count 4.60 M/mm3 (4.6-6.20); White Blood Count 7.0 K/mm3 (4.5-10.0)
[2025-10-02 11:19] LABS: Blood Urea Nitrogen 12 mg/dL (8-26); Carbon Dioxide 25 mmol/L (22-30); Chloride 104 mmol/L (98-109); Estimated Glomerular Filt Rate 58; Glucose 107 mg/dL (70-105); Ionized Calcium (POC) 1.15 mmol/L (1.11-1.31); Potassium 4.5 mmol/L (3.5-4.9); Sodium 141 mmol/L (138-146)
--- OUTSIDE RECORDS SUMMARY | 2025-10-02 11:45 | XMS_ITS | Encounter Summary ---
Author Organization [facility] Address [address] [place] [address] Care Team Providers Care Medical Coding Technician Name Role Phone Unavailable Primary Care Provider Unavailabl e Reason for Referral * CT Scan (Routine) - Authorized Specialty Diagnoses / Procedures Referred By Contac t Referred To Contact Diagnoses Malignant neoplasm of lung, unspecified laterality, unspecified part of lung (CMS/HCC) Procedures CT CHEST W CONTRAST Sukhdev Rodriguez MD [address] [address] Phone: tel: fax: Referral ID Status Reason Start Date Expiration Date V isits Requested Visits Authorized [id number] Authorized 10/02/2025 11/02/2026 1 1 E PULLER Encounter Details Date Type Department Care Team (Late st Contact Info) Description 10/02/2025 11:45 AM CABLE PULLER Office Visit [facility] Oncology and Hematology - [place] [address] [place] [address] [address] [place] [address] Sukhdve Rodriguez MD [address] [place] [address] Malignant neoplasm of lung, unspecified laterality, unspecified part of lung (CMS/HCC) (Primary Dx) Social History Tobacco Use Types Packs/Day Years [...] on file Legal Sex Male 4:23 AM CABLE PULLER Gender Identity Not on file Sexual Orientation Not on file documented as of this encounter Last Filed Vital Signs Vital Sign Reading Time Taken Comments Blood Pressure 140/90 10/02/2025 11:29 AM CABLE PULLER Pulse 77 10/02/2025 11:29 AM CABLE PULLER Temperature 36.2 C (97.1 F) 10/02/2025 11:29 AM CABLE PULLER Respiratory Rate 16 10/02/2025 11:29 AM CABLE PULLER Oxygen Saturation 93% 10/02/2025 11:29 AM CABLE PULLER Inhaled Oxygen Concentration - - Weight 71.8 kg (158 lb 6.4 oz) 10/02/2025 11:29 AM CABLE PULLER Height - - Body Mass Index 23.39 04/07/2023 11:16 AM CDT documented in this encounter Plan of Treatment Scheduled Orders Name Type Priority Associated Diagnoses Orde r Schedule CBC WITH DIFFERENTIAL Lab Stat Malignant neoplasm of lung, unspecified laterality, unspecified part of lung (CMS/HCC) Expected: 04/01/2026, Expires: 10/02/2026 COMPREHENSIVE METABOLIC PANEL Lab Stat Malignant neoplasm of lung, unspecified laterality, unspecified part of lung (CMS/HCC) Expected: 04/01/2026, Expires: 10/02/2026 CT CHEST W CONTRAST Imaging Routine Malignant neoplasm of lung, unspecified laterality, unspecified part of lung (CMS/HCC) Expected: 04/01/2026, Expires: 10/02/2026 documented as of this encounter Visit Diagnoses Diagnosis Malignant neoplasm of lung, unspecified laterality, unspecified part of lung (CMS/HCC)- Primary documented in this encounter
--- OUTSIDE RECORDS SUMMARY | 2025-10-02 11:54 | XMS_ITS | Encounter Summary ---
Author Organization [facility] Address [address] [place] [address] Care Team Providers Care Sports Doctor Name Role Phone Delano Fernández MD Primary Care Provider [phone] [phone] Encounter Details Date Type Department Care Team (Late st Contact Info) Description 12/15/2000 Outpatient Historical [facility] Yoni Soto MD Social History Tobacco Use Types Packs/Day Years Used Date Smoking Tobacco: Never Assessed Sex and Gender Information Value Date Recorded Sex Assigned at Not on file Legal Sex Male 4:23 AM EMPLOYEE BENEFITS DIRECTOR Gender Identity Not on file Sexual Orientation Not on file documented as of this encounter Plan of Treatment Not on file documented as of this encounter Visit Diagnoses Not on filedocumented in this encounter Care Teams Sports Doctor Relationship Specialty Start Date End Date Delano Fernández MD [address] [place] [phone] PCP - General Family Practice 03/16/23 10/24/24 documented as of this encounter
--- OUTSIDE RECORDS SUMMARY | 2025-10-02 11:54 | XMS_ITS | Clinical Summary ---
Author Organization [facility] Address [address] [place] [address] Care Team Providers Care Economic Analysis Director Name Role Phone Delano Fernández MD Primary Care Provider +1 [phone] Allergies No known active allergies Medications potassium [...] Active Active Problems No known active problems Encounters Date Type Department Care Team Description 08/02/2025 9:42 AM CDT - 08/02/2025 11:59 PM CDT Hospital Encounter [facility] [place] [address] [place], [place] [id number] Jerome Morgan PA-C Discharge Disposition: Home or Self Care (Routine Discharge) 08/02/2025 Travel 07/14/2025 10:28 AM CDT - 07/14/2025 11:59 PM CDT Hospital Encounter [facility] [address] [place] [address] Jerome Morgan PA-C Discharge Disposition: Home or Self Care (Routine Discharge) 07/14/2025 Travel from Last 3 Months Social History Tobacco Use Types Packs/Day Years [...] 1:39 PM CDT Height 175.3 cm (5' 9) 07/10/2023 1:39 PM CDT Body Mass Index 24.07 07/10/2023 1:39 PM CDT Plan of Treatment Health Maintenance Due Date Last Done Comments Hepatitis C 1963 Annual Medicare Wellness Visit 2011 COVID-19 Vaccine ( season) 2025 07/24/2024, 08/27/2023, 09/09/2022, Additional history exists Influenza Adult (#1) 2025 07/24/2024, 08/27/2023, 08/23/2021, Additional history exists DTaP, Tdap and Td Vaccines (3 - Td or Tdap) 10/04/2029 10/04/2019, 11/23/2009, 05/04/2003 Hepatitis A Vaccines Aged Out 02/06/2014, 09/21/2013, 08/10/2013 No longer eligible based on patient's age to complete this topic Pneumococcal Vaccine: 50+ Years Completed 03/04/2016, 03/19/2015, 02/23/2015 Zoster Vaccines Completed 09/29/2018, 02/2018, 09/05/2009, Additional history exists RSV Immunization or 60+ Years Completed 10/13/2024 Meningococcal B Vaccine Aged Out No l onger eligible based on patient's age to complete this topic Meningococcal Vaccine Aged Out No salima fernando eligible based on patient's age to complete this topic RSV Immunizations Under 20 Months Aged Out No longer eligible based on patient's age to complete this topic Medical Devices Implanted Type Area It Support Specialist Device Identifier Shelf Expiration Date Model / Serial / Lot Iol Tecnis Simplicity Dcb00 - [id number] Implanted:Qty: 1 on 07/20/2023 by Lalo Galindo MD at [facility] Lens Left: Lens [employer] 03/02/2026 DCB00 / [id number] / Tecnis 1 Piece Iol Implanted:Qty: 1 on 06/15/2023 by Lalo Galindo MD at [facility] Right: Eye 03/02/2026 / [id number] / Procedures Procedure Name Priority Date/Time Associated Diagnosis Comments MRI LUMB SPINE WO CON Routine 08/02/2025 10:32 AM CDT Other intervertebral disc degeneration, 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 Severe multilevel degenerative change as described. Severe spinal stenosis at L3-4 and L4-5. 2. Multilevel neural foramen narrowing with locations and percentages as detailed above. 3. Bilateral probable benign renal cysts. Follow-up with renal ultrasound for confirmation. Ordered By: JEROME MORGAN Interpreted By: Maryam Akers, 08/15/2025 2:55 PM Narrative 08/15/2025 3:11 PM CDT [facility] [address] [place] [address] IMAGING STUDIES: MRI LUMB SPINE WO CON DATE: 08/02/2025 9:59 AM INDICATION: Other intervertebral disc degenration lumbar region without mention of lumbar . Chronic low back pain with difficulty walking and standing. No history of trauma COMPARISON: No prior studies for comparison. Correlation with plain films of 07/14/2025 FINDINGS: Partially lumbarized S1 segment. Vertebral body heights are grossly well maintained. Advanced multilevel endplate and facet joint degenerative change. Mild multilevel endplate osseous edema from degenerative change. Multilevel disc dehydration. Near total loss of disc space height at multiple levels. Conus ends at T12-L1 without gross abnormality.. No paraspinal lesions. Bilateral probable benign renal cyst. Follow-up with renal ultrasound for confirmation. T12-L1: No disc herniation, spinal or foraminal stenosis. L1-L2: Mild disc/osteophyte complex. No spinal stenosis. Mild ligamentum flavum hypertrophy and facet joint degenerative change. Minor bilateral neural foramen narrowing due to degenerative change. L2-L3: Minimal grade 1 retrolisthesis of L2 on L3. Mild posterior disc/osteophyte complex. Moderate ligamentum flavum hypertrophy and facet joint degenerative change. Mild spinal stenosis. Moderate bilateral neural foramen narrowing due to degenerative change. L3-L4: Moderate posterior disc/osteophyte complex. Small left lateral disc herniation with significant 90% narrowing of the left-sided neural foramen. 75% right-sided neural foramen narrowing due to degenerative change. Moderate ligamentum flavum hypertrophy and facet joint degenerative change. Severe spinal stenosis. L4-L5: Moderate posterior disc/osteophyte complex. With ligamentum flavum hypertrophy and facet joint degenerative change. Severe spinal stenosis. 75% bilateral neural foramen narrowing due to degenerative change. Minimal grade 1 retrolisthesis of L4 on L5. L5-S1: Moderate posterior disc/osteophyte complex. Moderate ligamentum flavum hypertrophy and facet joint degenerative change. Moderate spinal stenosis. Advanced 90% bilateral neural foramen narrowing due to degenerative change. Procedure Note Esa Akers MD - 08/15/2025 [facility] [address] [place] [address] IMAGING STUDIES: MRI LUMB SPINE WO CONDATE: 08/02/2025 9:59 AM INDICATION: Other intervertebral disc degenration lumbar region withoutmention of lumbar . Chronic low back pain with difficulty walking andstanding. No history of trauma COMPARISON: No prior studies for comparison. Correlation with plain filmsof 07/14/2025 FINDINGS: Partially lumbarized S1 segment. Vertebral body heights are grossly wellmaintained. Advanced multilevel endplate and facet joint degenerativechange. Mild multilevel endplate osseous edema from degenerative change.Multilevel disc dehydration. Near total loss of disc space height atmultiple levels. Conus ends at T12-L1 without gross abnormality.. No paraspinal lesions.Bilateral probable benign renal cyst. Follow-up with renal ultrasound forconfirmation. T12-L1: No disc herniation, spinal or foraminal stenosis. L1-L2: Mild disc/osteophyte complex. No spinal stenosis. Mild ligamentumflavum hypertrophy and facet joint degenerative change. Minor bilateralneural foramen narrowing due to degenerative change. L2-L3: Minimal grade 1 retrolisthesis of L2 on L3. Mild posteriordisc/osteophyte complex. Moderate ligamentum flavum hypertrophy and facetjoint degenerative change. Mild spinal stenosis. Moderate bilateral neuralforamen narrowing due to degenerative change. L3-L4: Moderate posterior disc/osteophyte complex. Small left lateral discherniation with significant 90% narrowing of the left-sided neuralforamen. 75% right-sided neural foramen narrowing due to degenerativechange. Moderate ligamentum flavum hypertrophy and facet jointdegenerative change. Severe spinal stenosis. L4-L5: Moderate posterior disc/osteophyte complex. With ligamentum flavumhypertrophy and facet joint degenerative change. Severe spinal stenosis.75% bilateral neural foramen narrowing due to degenerative change. Minimalgrade 1 retrolisthesis of L4 on L5. L5-S1: Moderate posterior disc/osteophyte complex. Moderate ligamentumflavum hypertrophy and facet joint degenerative change. Moderate spinalstenosis. Advanced 90% bilateral neural foramen narrowing due todegenerative change. IMPRESSION: 1. Severe multilevel degenerative change as described. Severe spinalstenosis at L3-4 and L4-5. 2. Multilevel neural foramen narrowing with locations and percentages asdetailed above. 3. Bilateral probable benign renal cysts. Follow-up with renal ultrasoundfor confirmation. Ordered By: JEROME MORGAN Interpreted By: Maryam Akers, 08/15/2025 2:55 PM us Jerome KNAPP-Curt MRI Final Resu lt * XR LUMB SPINE 3V (07/14/2025 10:55 AM CDT) Anatomical Region Laterality Modality Spine Radiographic Karen ging 07/15/2025 12:5 5 AM CDT Impressions 07/15/2025 1:01 AM CDT IMPRESSION: 1. Age-indeterminate T12 vertebral body compression fracture . Collection of point tenderness. A follow-up MRI of the thoracal lumbar spine could be considered for further evaluation, as clinical directed. 2. Severe multilevel degenerative changes of the lumbar spine, most advanced at L4- L5. 3. Extensive aortoiliac calcific atherosclerosis. Ordered By: JEROME MORGAN Interpreted By: Lv Slade MD, 07/15/2025 12:55 AM Narrative 07/15/2025 1:01 AM CDT [facility] [address] [place] [address] PROCEDURE: XR LUMB SPINE 3V HISTORY: Back pain. COMPARISON: CT chest without contrast, 03/10/2027. TECHNIQUE: 3 views of the lumbar spine were obtained. FINDINGS: There is no acute fracture identified. There is anterior wedging of the T12 vertebral body The remaining vertebrae bodies are normal in height. Mild S-shaped scoliotic curvature of the lumbar spine, likely positional. Mild retrolisthesis of L2 on L3 and L3-L4. There is extensive multilevel degenerative changes of the lumbar spine with anterior bridging osteophytes and facet joint arthropathy. There is severe degenerative disc disease at L1-L2, L3-L4 and L4-L5. There are lesser degrees of disc space narrowing and remaining levels. There is extensive calcific atherosclerosis of the abdominal aorta and bilateral iliac arteries Procedure Note Lv Slade MD - 07/15/2025 [facility] [address] [place] [address] PROCEDURE: XR LUMB SPINE 3V HISTORY: Back pain. COMPARISON: CT chest without contrast, 03/10/2027. TECHNIQUE: 3 views of the lumbar spine were obtained. FINDINGS: There is no acute fracture identified. There is anterior wedging of theT12 vertebral body The remaining vertebrae bodies are normal in height.Mild S-shaped scoliotic curvature of the lumbar spine, likely positional.Mild retrolisthesis of L2 on L3 and L3-L4. There is extensive multileveldegenerative changes of the lumbar spine with anterior bridgingosteophytes and facet joint arthropathy. There is severe degenerative discdisease at L1-L2, L3-L4 and L4-L5. There are lesser degrees of disc spacenarrowing and remaining levels. There is extensive calcific atherosclerosis of the abdominal aorta andbilateral iliac arteries IMPRESSION: 1. Age-indeterminate T12 vertebral body compression fracture . Collectionof point tenderness. A follow-up MRI of the thoracal lumbar spine could beconsidered for further evaluation, as clinical directed. 2. Severe multilevel degenerative changes of the lumbar spine, mostadvanced at L4-L5. 3. Extensive aortoiliac calcific atherosclerosis. Ordered By: JEROME MORGAN Interpreted By: Lv Slade MD, 07/15/2025 12:55 AM us Jerome Morgan PA-C GENERAL IMAGING Final Resu lt from Last 3 Months Insurance MEDICARE AET Care Teams Economic Analysis Director Relationship Specialty Start Date End Date Delano Fernández MD [address] [place] [id number] PCP - General FAMILY PRACTICE 06/15/23
--- OUTSIDE RECORDS SUMMARY | 2025-10-02 11:54 | XMS_ITS | Clinical Summary ---
Author Organization [facility] Address [address] [place] [address] Phone Care Team Providers Care Die Filer Name Role Phone Unavailable Primary Care Provider [...] Encounters Date Type Department Care Team Description 10/02/2025 11:45 AM BRANCH OFFICE MANAGER Office Visit [facility] Oncology and Hematology [facility] [address] [place] [address] Sukhdev Rodriguez MD Malignant neoplasm of lung, unspecified laterality, unspecified part of lung (CMS/HCC) (Primary Dx) 09/28/2025 Orders Only [facility] Oncology and Hematology [facility] [address] [place] [address] Sukhdev Rodriguez MD 09/13/2025 External Device Data STL ABSTRACTION Provider, [...] on file Legal Sex Male 4:23 AM BRANCH OFFICE MANAGER Gender Identity Not on file Sexual Orientation Not on file Last Filed Vital Signs Vital Sign Reading Time Taken Comments Blood Pressure 140/90 10/02/2025 11:29 AM BRANCH OFFICE MANAGER Pulse 77 10/02/2025 11:29 AM BRANCH OFFICE MANAGER Temperature 36.2 C (97.1 F) 10/02/2025 11:29 AM BRANCH OFFICE MANAGER Respiratory Rate 16 10/02/2025 11:29 AM BRANCH OFFICE MANAGER Oxygen Saturation 93% 10/02/2025 11:29 AM BRANCH OFFICE MANAGER Inhaled Oxygen Concentration - - Weight 71.8 kg (158 lb 6.4 oz) 10/02/2025 11:29 AM BRANCH OFFICE MANAGER Height 175.3 cm (5' 9) 04/07/2023 11:16 AM CDT Body Mass Index 23.39 04/07/2023 11:16 AM CDT Plan of Treatment Health Maintenance Due Date Last Done Comments Traditional Medicare (ACO) A nnual Wellness Visit 1964 RSV VACCINE (60+ or ) (1 - 1-dose 75+ series) 2021 INFLUENZA VACCINE (#1) 2025 , 09/08/2017, 08/25/2017, Additional history exists COVID-19 Vaccine (2023-2 5 season) 2025 07/24/2024, 08/27/2023, 09/09/2022, Additional history exists DTAP/TDAP/TD VACCINES (3 - T d or Tdap) 10/04/2029 10/04/2019, 11/23/2009, 05/04/2003 FIT/FOBT Q 1 year Discontinued 12/15/2000 PNEUMOCOCCAL VACCINE 50+ YEARS Completed 0 03/04/2016, 03/19/2015, 02/23/2015, Additional history exists ZOSTER VACCINE Completed 09/29/2018, 0502/2018, 09/05/2009, Additional history exists COLORECTAL SCREENING Discontinued 05/24/2020, 09/05/2015, 06/29/2007, Additional history exists Colorectal Cancer Screening Discontinued FIT-DNA Q 3 years Discontinued Flex Sig/CT Colonography Q 5 years Discontinued Medical Devices Implanted Type Area Bill Sorter Device Identifier Shelf Expiration Date Model / Serial / Lot Peg Endovive Std 20fr [id number] - [id number] Implanted:Qt y: 1 on 01/27/2022 by Mukesh Santos MD at [facility] Feeding Device [employer] COLLEEN [id number] 09/08/2022 [id number] / / [id number] Port Powerport Mri 8fr [id number] - [id number] Implanted:Qt y: 1 on 01/27/2022 by Christofer Echols MD at [facility] Port N/A: Chest CR [employer] [id number] 05/22/2023 [id number] / / [id number] Procedures Procedure Name Priority Date/Time Associated Diagnosis Comments CT CHEST W CONTRAST Routine 09/27/2025 1 2:39 PM BRANCH OFFICE MANAGER ENDOSCOPY, COLON, DIAGNOSTIC Routine 06/29/2007 from Last 3 Months or Most Recently Relevant to Health Maintenance Results * CT CHEST W CONTRAST (09/27/2025 12:39 PM BRANCH OFFICE MANAGER) Anatomical Region Laterality Modality Chest Computed Tomogra phy us Sukhdev Rodriguez MD CT ORDERABLES Final Result * (ABNORMAL) ENDOSCOPY, COLON, DIAGNOSTIC (06/29/2007) Mukesh May MD GI PROCEDURE ORDERABLES Edited [facility] from Last 3 Months or Most Recently Relevant to Health Maintenance Insurance MEDICARE PART A AND B AETNA MEDICARE SUPP AESSI MEDICARE PART A AND B AETNA MEDICARE SUPP AESSI Advance Directives For more information, please contact: [phone] Documents on File Type Date Recorded Patient Scarfer Expl anation Advance Directive POA 09/18/2017 9:30 [...]
--- OUTSIDE RECORDS SUMMARY | 2025-10-02 11:54 | XMS_ITS | Encounter Summary ---
Author Organization [facility] ROBERT Singh [facility] Address [address] [place] [address] Care Team Providers Care Oyster Floater Name Role Phone Unavailable Primary Care Provider Unavailabl e Encounter Details Date Type Department Care Team (Late st Contact Info) Description 09/28/2025 Orders Only [facility] Oncology and Hematology - [place] [address] [facility] [address] [place] [address] Sukhdev Rodriguez MD [address] [facility] [address] [place] [address] Social History Tobacco Use Types Packs/Day Years Used Date Smoking Tobacco: Former Cigarettes Q uit: 04/11/2020 Smokeless Tobacco: Never Alcohol Use Standard Drinks/Week Comments Yes 0 (1 standard drink = 0.6 oz pur e alcohol) daily wine 2 glasses at hs Feeling Safe Answer Date Recorded Are you in a relationship wi th someone who hurts you emotionally and/or physically? No 04/07/2023 Sex and Gender Information Value Date Recorded Sex Assigned at Not on file Legal Sex Male 4:23 AM COSTUME SEAMSTRESS Gender Identity Not on file Sexual Orientation Not on file documented as of this encounter Plan of Treatment Not on file documented as of this encounter Procedures Procedure Name Priority Date/Time Associated Diagnosis Comments CT CHEST W CONTRAST Routine 09/27/2025 12:39 PM COSTUME SEAMSTRESS documented in this encounter Results * CT CHEST W CONTRAST (09/27/2025 12:39 PM COSTUME SEAMSTRESS) Anatomical Region Laterality Modality Chest Computed Tomogra phy us Sukhdev Rodriguez MD CT ORDERABLES Final Result documented in this encounter Visit Diagnoses Not on filedocumented in this encounter
--- OUTSIDE RECORDS SUMMARY | 2025-10-02 11:54 | XMS_ITS | Encounter Summary ---
Author Organization [facility] Address [address] [place] [address] Care Team Providers Care Director Furniture Name Role Phone Delano Fernández MD Primary Care Provider +1 [phone] Encounter Details Date Type Department Care Team (Late st Contact Info) Description 05/29/1999 Outpatient Historical [facility] Yoni Soto MD Social History Tobacco Use Types Packs/Day Years Used Date Smoking Tobacco: Never Assessed Sex and Gender Information Value Date Recorded Sex Assigned at Not on file Legal Sex Male 4:23 AM STENCIL TYPIST Gender Identity Not on file Sexual Orientation Not on file documented as of this encounter Plan of Treatment Not on file documented as of this encounter Visit Diagnoses Not on filedocumented in this encounter Care Teams Director Furniture Relationship Specialty Start Date End Date Delano Fernández MD [address] [place] [phone] PCP - General Family Practice 03/16/23 10/24/24 documented as of this encounter
[2025-10-02 11:55] LABS: Alanine Aminotransferase 13 U/L (6-50); Albumin Level 4.1 g/dL (3.5-5.1); Alkaline Phosphatase 61 U/L (38-126); Anion Gap 9 mmol/L (4-12); Aspartate Amino Transferase 22 U/L (17-59); Bilirubin,Total 0.8 mg/dL (0.2-1.3); Blood Urea Nitrogen 13 mg/dL (9-20); Calcium 8.9 mg/dL (8.4-10.2); Carbon Dioxide 26 mmol/L (22-30); Chloride 104 mmol/L (98-107); Estimated Glomerular Filt Rate > 60; Glucose 108 mg/dL (65-110); Potassium 4.4 mmol/L (3.4-5.0); Sodium 139 mmol/L (137-145); Total Protein 7.3 g/dL (6.3-8.2)
== END 2025-10-02 11:05 | disposition home or self-care (01) ==
LOC: ANHLAB 11:05
PROVIDERS: PCP Physician Assistant Medical; Visit Provider Internal Medicine Hematology & Oncology
DX: C34.90 Malignant neoplasm of unspecified part of unspecified bronchus or lung (principal)
CPT/HCPCS: 36415; 80047; 80053; 85025